=== PATIENT | female | born 1960 | race Caucasian/White ===

== ENCOUNTER 2020-02-04 11:14 | Outpatient (CLI) | payer BC, SELFPAY ==
--- NOTE | 2020-02-04 11:31 | MM_ITS ---
WS: [id number] BILATERAL DIGITAL SCREENING MAMMOGRAPHY WITH CAD CLINICAL INFORMATION: SCREEN HISTORY: Screening mammogram. No current complaints. COMPARISON: September 16, 2018 TECHNIQUE: Bilateral CC and MLO views. FINDINGS: The breasts are composed of heterogeneous fibroglandular density tissue, which can limit the detectio n of small underlying mass lesions. No suspicious mass, asymmetry, calcifications, or architectural d istortion. No evidence of malignancy. MM/[place] [id number] IMPRESSION: BI-RADS: 2-Benign FOLLOW UP: 1 Year Follow-up Recommend return to annual screening mammography.
== END 2020-02-04 11:15 | disposition home or self-care (01) ==
LOC: RADSHAW 11:14
PROVIDERS: PCP Family Medicine; Visit Provider Family Medicine
DX: Z12.31 Encounter for screening mammogram for malignant neoplasm of breast (principal)
CPT/HCPCS: 77067

== ENCOUNTER → 2020-02-09 15:00 | Outpatient (BNVA) | payer BC, SELFPAY | PROVIDERS: PCP Family Medicine; Visit Provider Obstetrics & Gynecology | DX: R30.0 Dysuria (principal) | CPT/HCPCS: 80053; 81000 ==

== ENCOUNTER → 2020-04-11 15:37 | Outpatient (BNVA) | payer BC, SELFPAY | PROVIDERS: PCP Family Medicine; Visit Provider Obstetrics & Gynecology | DX: N90.89 Other specified noninflammatory disorders of vulva and perineum (principal) | CPT/HCPCS: 88305 ==

== ENCOUNTER 2021-01-01 15:12 | Outpatient (CLI) | payer BC, SELFPAY ==
--- NOTE | 2021-01-01 15:40 | XRR_ITS ---
PROCEDURE INFORMATION: Exam: XR Chest Exam date and time: 01/01/2021 3:40 PM Age: 60 years old Clinical indication: Cough and fever; Additional info: Cough/fever TECHNIQUE: Imaging protocol: XR of the chest. Views: 2 views. COMPARISON: No relevant prior studies available. FINDINGS: Lungs: Unremarkable. No consolidation. Hyperinflation. Emphysematous changes. Pleural spaces: Unremarkable. No pleural effusion. No pneumothorax. Heart/Mediastinum: Unremarkable. No cardiomegaly. Bones/joints: Unremarkable. XR/XR chest 2V* [id number] IMPRESSION: No acute findings.
== END 2021-01-01 15:13 | disposition home or self-care (01) ==
PROVIDERS: PCP Family Medicine; Visit Provider Family Medicine
DX: R05 Cough (principal); R50.9 Fever, unspecified
CPT/HCPCS: 71046

== ENCOUNTER 2021-03-02 11:33 | Outpatient (CLI) | payer BC, SELFPAY ==
--- NOTE | 2021-03-02 11:38 | MM_ITS ---
WS: [id number] Exam: [place] [id number] Date/Time of Exam: 03/02/2021 11:45 AM Reason For Exam: SCREENING VIEWS: MLO and CC views both breasts. Comparison made with prior exam of 02/04/2020, 09/16/2018, and 08/06/2017.. Findings: Partially obscured grouped microcalcifications are noted in the right breast at about the 12:30 posit ion at mid depth. No associated mass or architectural distortion. The left breast is unremarkable wit hout significant change. Both breasts are heterogeneously dense. MM/[place] [id number] Impression: BI-RADS: 0-Incomplete: Need additional imaging evaluation FOLLOW-UP: Magnification spot imaging of the right breast in the CC and 90 degr ee lateral projections would be indicated for further workup. This mammogram was also analyzed by the Computer Aided Detection System R2 Imag e Pathology Specialist.
== END 2021-03-02 11:34 | disposition home or self-care (01) ==
LOC: RADSHAW 11:36
PROVIDERS: PCP Family Medicine; Visit Provider Obstetrics & Gynecology
DX: Z12.31 Encounter for screening mammogram for malignant neoplasm of breast (principal)
CPT/HCPCS: 77067

== ENCOUNTER 2021-03-15 12:56 | Outpatient (CLI) | payer BC, SELFPAY ==
--- NOTE | 2021-03-15 13:00 | MM_ITS ---
WS: [id number] RIGHT DIGITAL MAMMOGRAPHY WITH CAD CLINICAL INFORMATION: R92.8 - Other abnormal and inconclusive findings on diagn... All COMPARISON: March 02, 2021 TECHNIQUE: 6 views of the right breast were obtained. FINDINGS: The right breast is composed of heterogeneous fibroglandular density tissue, which can limit the dete ction of small underlying mass lesions. Again seen are the clustered amorphous microcalcifications ri ght breast near the 12:00 position mid depth. On spot magnification views today these are very faintl y visualized. Some of these appear to represent benign milk of calcium. Overall these are probably be nign and recommend 6 month follow-up right spot magnification views to confirm stability. MM/[place] [id number] IMPRESSION: BI-RADS: 3-Probably Benign FOLLOW UP: 6 Month Follow-up
== END 2021-03-15 12:57 | disposition home or self-care (01) ==
LOC: RADSHAW 13:01
PROVIDERS: PCP Family Medicine; Visit Provider Obstetrics & Gynecology
DX: R92.8 Other abnormal and inconclusive findings on diagnostic imaging of breast (principal)
CPT/HCPCS: 77065

== ENCOUNTER → 2021-05-17 17:05 | Outpatient (BNVA) | payer BC, SELFPAY | PROVIDERS: PCP Family Medicine; Visit Provider Nurse Practitioner | DX: Z20.822 Contact with and (suspected) exposure to COVID-19 (principal); J01.90 Acute sinusitis, unspecified | CPT/HCPCS: 87635 ==

== ENCOUNTER 2021-09-21 11:45 | Outpatient (CLI) | payer BC, SELFPAY ==
--- NOTE | 2021-09-21 12:00 | MM_ITS ---
WS: [id number] Diagnostic RIGHT MAMMOGRAM HISTORY: Follow-up calcifications. Six-month of reevaluation. COMPARISON: 03/02/2021, 03/15/2021 and 02/04/2020. RIGHT MAMMOGRAM: Magnification views and true ML. Calcifications are best seen in the lateral projections above the nipple line at a middle depth. Some of these calcifications are in the linear distribution. There is adjacent moderate fibroglandular di sease. The calcifications do appear to have increased in size and number. MM/[place] [id number] IMPRESSION: BI-RADS: 4-Suspicious Finding-Biopsy Should Be Considered FOLLOW UP: Biopsy Recommended Stereotactic biopsy recommended of linear calcifications in the superior RIGHT breast. Notified Junior Colon MD at 09/21/2021 12:42 PM. Message left on nurse [facility].
== END 2021-09-21 11:46 | disposition home or self-care (01) ==
LOC: RADSHAW 11:51
PROVIDERS: PCP Family Medicine; Visit Provider Obstetrics & Gynecology
DX: R92.8 Other abnormal and inconclusive findings on diagnostic imaging of breast (principal); R92.1 Mammographic calcification found on diagnostic imaging of breast
CPT/HCPCS: 77065

== ENCOUNTER 2021-10-08 14:02 | Outpatient (CLI) | payer SELFPAY ==
[2021-10-08 08:55] VITALS: BMI 26.4
[2021-10-08 15:50] VITALS: BP 119/64; PULSE 77; RESP 18; TEMP 36.7; O2SAT 97
== END 2021-10-08 14:03 | disposition home or self-care (01) ==
LOC: OPS 14:03
PROVIDERS: PCP Family Medicine; Visit Provider Family Medicine
DX: U07.1 COVID-19 (principal)
CPT/HCPCS: 96365

== ENCOUNTER 2021-10-23 12:11 | Outpatient (CLI) | payer BC, SELFPAY ==
--- NOTE | 2021-10-23 12:16 | MM_ITS ---
WS: [id number] STEREOTACTIC RIGHT BREAST BIOPSY WITH VACUUM ASSISTANCE HISTORY: Indeterminate vague calcifications in the RIGHT breast. COMPARISON: 09/21/2021 and 03/02/2021 Procedure, risks and complications were explained to the patient. Medications and prior radiographs a re reviewed. RIGHT breast calcifications are located. Calcifications are targeted in the lateral medial projection . These calcifications are very vague and difficult to visualize. The skin is cleansed with ChloraPre p and anesthetized with 1% buffered lidocaine. Deeper soft tissues anesthetized with a combination of lidocaine and epinephrine. Small dermatome is made. Needle advanced into the RIGHT breast. Stereotac tic imaging reveals appropriate positioning adjacent calcifications. Multiple vacuum-assisted core bi opsies are obtained. No complications were encountered. Post biopsy specimen radiograph reveals no calcifications. These calcifications may have been crushed . Biopsy clip is placed in the cavity. Post imaging reveals good placement of the clip. No migration. Pressures held for approximately 15 minutes. No bleeding. Dressing applied. Patient discharged with n o complications. There is no bleeding. With any questions or complications patient is to return. MM/[place] [id number] IMPRESSION: 1. Uncomplicated RIGHT breast stereotactic biopsy. 2. Specimen does not contain calcifications. These calcifications were very sm all and could have been crushed. Post procedure imaging does suggest these calc ifications were partially removed. The biopsy clip and the post procedure imagi ng supports these calcifications where correctly targeted. Pathology: Benign breast tissue with focal adenosis and fibrocystic changes. No malignancy. RECOMMENDATION: Diagnostic RIGHT mammogram in 6 months.
--- NOTE | 2021-10-23 13:00 | MM_ITS ---
WS: [id number] STEREOTACTIC RIGHT BREAST BIOPSY WITH VACUUM ASSISTANCE HISTORY: Indeterminate vague calcifications in the RIGHT breast. COMPARISON: 09/21/2021 and 03/02/2021 Procedure, risks and complications were explained to the patient. Medications and prior radiographs a re reviewed. RIGHT breast calcifications are located. Calcifications are targeted in the lateral medial projection . These calcifications are very vague and difficult to visualize. The skin is cleansed with ChloraPre p and anesthetized with 1% buffered lidocaine. Deeper soft tissues anesthetized with a combination of lidocaine and epinephrine. Small dermatome is made. Needle advanced into the RIGHT breast. Stereotac tic imaging reveals appropriate positioning adjacent calcifications. Multiple vacuum-assisted core bi opsies are obtained. No complications were encountered. Post biopsy specimen radiograph reveals no calcifications. These calcifications may have been crushed . Biopsy clip is placed in the cavity. Post imaging reveals good placement of the clip. No migration. Pressures held for approximately 15 minutes. No bleeding. Dressing applied. Patient discharged with n o complications. There is no bleeding. With any questions or complications patient is to return. MM/[place] [id number] IMPRESSION: 1. Uncomplicated RIGHT breast stereotactic biopsy. 2. Specimen does not contain calcifications. These calcifications were very sm all and could have been crushed. Post procedure imaging does suggest these calc ifications were partially removed. The biopsy clip and the post procedure imagi ng supports these calcifications where correctly targeted. Pathology: Benign breast tissue with focal adenosis and fibrocystic changes. No malignancy. RECOMMENDATION: Diagnostic RIGHT mammogram in 6 months.
[2021-10-23 14:08] LABS: INR 0.93 (0.8-1.2)
== END 2021-10-23 12:12 | disposition home or self-care (01) ==
PROVIDERS: PCP Family Medicine; Visit Provider Obstetrics & Gynecology
DX: R92.8 Other abnormal and inconclusive findings on diagnostic imaging of breast (principal); Z01.812 Encounter for preprocedural laboratory examination; N60.21 Fibroadenosis of right breast
CPT/HCPCS: 19081; 77065; 85610; 88305

== ENCOUNTER 2022-05-01 09:16 | Outpatient (CLI) | payer BC, SELFPAY ==
--- NOTE | 2022-05-01 09:25 | MM_ITS ---
WS: [id number] Bilateral diagnostic 3D tomosynthesis digital mammogram, 05/01/2022 Clinical Data: R92.8 - Other abnormal and inconclusive findings on diagn... Comparison: 10/23/2021, 09/21/2021, 03/15/2021, 03/02/2021. Findings: The breast parenchymal pattern shows heterogeneous density. There is a biopsy clip in the upper outer quadrant right breast. No spiculated masses or clustered calcifications are seen. There are mole mar kers on both breasts. No secondary signs of carcinoma. No clustered calcifications or spiculated mass es are seen. MM/[place] [id number] Impression: 1. Bilateral negative mammogram. 2. Recommend annual mammograms. BIRADS: 2-Benign FOLLOW UP: 1 Year Follow-up The CAD roller checker was used.
== END 2022-05-01 09:17 | disposition home or self-care (01) ==
LOC: RAD 09:17
PROVIDERS: PCP Family Medicine; Visit Provider Obstetrics & Gynecology
DX: R92.8 Other abnormal and inconclusive findings on diagnostic imaging of breast (principal)
CPT/HCPCS: 77062

== ENCOUNTER → 2022-08-19 09:39 | Outpatient (BNVA) | payer BC, SELFPAY | PROVIDERS: PCP Family Medicine; Visit Provider Family Medicine | DX: Z51.81 Encounter for therapeutic drug level monitoring (principal); Z13.220 Encounter for screening for lipoid disorders; Z00.00 Encounter for general adult medical examination without abnormal findings; Z12.11 Encounter for screening for malignant neoplasm of colon | CPT/HCPCS: 80053; 80061; 85025 ==

== ENCOUNTER → 2022-09-02 13:06 | Outpatient (BNVA) | payer BC, SELFPAY | PROVIDERS: PCP Family Medicine; Visit Provider Family Medicine | DX: R73.09 Other abnormal glucose (principal) | CPT/HCPCS: 83036 ==

== ENCOUNTER 2022-12-02 16:50 | Observation (INO) | payer BC, SELFPAY ==
[2022-12-02] VITALS (9 sets, daily range): BP systolic 115–181; BP diastolic 68–89; PULSE 67–88; RESP 16–18; TEMP 36.4–37.1; O2SAT 95–99; BMI 28.2
--- NOTE | 2022-12-02 17:38 | ED_ITS ---
HPI - Neuro Symptoms/Deficit General: Chief Complaint: Neuro Symptoms/Deficit Stated Complaint: Yariel sent/poss TIA Time Seen by Provider: 12/02/22 17:38 History of Present Illness: Ms Vargas is a 62 lady with history of hypertension presenting to the emergency department for strokelike symptoms that have resolved. She reports being at her baseline health. She had onset between 2 and 230 this afternoon with a dizzy unsteady feeling while standing. She tried to talk to her and had difficulty with word finding and trouble forming her words. She had palpitations associated with this. She laid down for a nap and subsequently woke up. Some of her symptoms had improved however she did note left-sided facial droop and perhaps lack of strength in the left upper extremity. She does endorse unsteady feeling with gait. She currently feels back to baseline without neurologic symptoms. Denies similar episodes in the past. No other specific changes in health, exacerbating, or alleviating factors identified. Onset (ago): hour(s) Severity: moderate Relieving factors: time Review of Systems General: Reports: 10 or more systems reviewed and unremarkable except in HPI and below PFSH ED PFSH: Medical History History of mononucleosis Month of December 2020 Hypertension Diagnosed at 53 and controlled with medication managed by PMD. No pertinent past medical history Denies: diabetes, seizures, DVT/PE, asthma. PCP: Dr. Saldivar Surgical History S/P section x 3 S/P dilation and curettage Done for miscarriage S/P tubal ligation Performed at time of her third S/P wisdom tooth extraction Family History Father Heart disease Stroke Hypertension Mother Thyroid condition Polycythemia vera at age 90 Family/Other Breast cancer paternal aunt, diagnosed in her 70s. 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 at Physical Exam Const: COMMON NORMALS: patient oriented x3 and alert GENERAL APPEARANCE: cooperative and well developed HENMT: COMMON NORMALS: normocephalic and atraumatic HEAD & SCALP: normocephalic and atraumatic Eye: COMMON NORMALS: conjunctivae normal CONJUNCTIVA: Yes conjunctivae normal SCLERA: sclerae normal Neck/C-Spine: COMMON NORMALS: supple GENERAL: Yes trachea midline Resp: COMMON NORMALS: normal respiratory effort EFFORT & INSPECTION: Yes able to speak in complete sentences Cardio: COMMON NORMALS: regular rate and regular rhythm RATE: regular rate RHYTHM: regular rhythm GI: COMMON NORMALS: Soft to palpation PALPATION: Yes Soft to palpation and No Tenderness to palpation present (GI) PERCUSSION: normal to percussion Extremity: GENERAL: Yes normal exam except as noted and No edema Neuro: COMMON NORMALS: patient oriented x3, CN's II-XII intact bilaterally, moves all extremities, no focal motor deficits, no sensory deficits noted and gait normal SENSORIUM/ORIENTATION: Yes alert and No Orientation impaired Psych: COMMON NORMALS: mental status grossly normal and Normal thought process present THOUGHT PROCESS: Normal thought process present Course Vital Signs: Vital signs: Vital Signs Temperature 98.2 F 12/03/22 16:02 Pulse Rate 80 12/03/22 16:02 Respiratory Rate 18 12/03/22 16:02 Blood Pressure 154/84 12/03/22 16:02 Pulse Oximetry 95 12/03/22 16:02 Oxygen Delivery Me thod 12/03/22 12:00 MDM - Neuro Symptoms/Deficit Medical Decision Making 62-year-old lady presenting for strokelike symptoms that have resolved. Symptoms seem to wax and wane in nature. NIHSS 0. No indication for tPA. EKG notable for sinus rhythm with normal axis and intervals, no STEMI. No significant hematologic or metabolic abnormalities to explain symptoms. No UTI. Chest x-ray with no lobar consolidation or pneumothorax. CT head negative for acute intracranial hemorrhage. Most likely etiology of patient symptoms is TIA. The results of ED evaluation were discussed with the patient including plan for admission due to requirement for level of care not available if discharged to prevent significant worsening/deterioration. Patient agreeable with plan. Discussed with hospitalist service who was agreeable to admit patient. Medical Records I reviewed the patient's medical records. Lab Data I reviewed the patient's lab results. 12/02/22 18:11 12/02/22 18:11 Radiology Impressions Chest X-Ray 12/02/22 17:49 IMPRESSION: No acute findings. Head CT 12/02/22 17:49 IMPRESSION: No acute intracranial abnormality. Head/Neck CTA 12/03/22 09:59 IMPRESSION: 1. No significant ICA stenosis bilaterally. 2. LEFT dominant vertebral artery. Both vertebral arteries are patent. 3. Aberrant RIGHT subclavian artery. 4. Normal intracranial CTA. No proximal flow limiting stenosis. 5. No other remarkable findings. Shoulder X-Ray 12/03/22 13:57 Impression: Negative left shoulder. Laboratory Results WBC 8.1 10^3/uL (4.0-10.0) 12/02/22 18:11 RBC 4.97 10^6/uL (4.1-5.3) 12/02/22 18:11 Hgb 14.0 g/dL (11.5-15.3) 12/02/22 18:11 Hct 42.8 % (37.0-47.0) 12/02/22 18:11 MCV 86.1 fl (81-99) 12/02/22 18:11 MCH 28.2 pg (28.0-34.0) 12/02/22 18:11 MCHC 32.7 g/dL (30.0-36.0) 12/02/22 18:11 RDW 13.2 % (12.1-15.1) 12/02/22 18:11 Plt Count 265 10^3/cmm (130-400) 12/02/22 18:11 MPV 9.4 fL (7.4-10.4) 12/02/22 18:11 Neut % (Auto) 82.1 % 12/02/22 18:11 Lymph % (Auto) 12.2 % 12/02/22 18:11 Elbert % (Auto) 4.6 % 12/02/22 18:11 Eos % (Auto) 0.2 % 12/02/22 18:11 Baso % (Auto) 0.5 % 12/02/22 18:11 Neut # (Auto) 6.65 10^3/uL (1.8-7.7) 12/02/22 18:11 Lymph # (Auto) 1.0 10^3/uL (0.8-4.8) 12/02/22 18:11 Elbert # (Auto) 0.4 10^3/uL (0.2-0.9) 12/02/22 18:11 Eos # (Auto) 0.0 10^3/uL (0.0-0.8) 12/02/22 18:11 Baso # (Auto) 0.0 10^3/uL (0.0-0.1) 12/02/22 18:11 Nucleated RBC % (auto) 0 % 12/02/22 18:11 Nucleated RBCs # 0.0 /100WBC 12/02/22 18:11 Sodium 141 mmol/L (136-145) 12/02/22 18:11 Potassium 4.5 mmol/L (3.5-5.1) 12/02/22 18:11 Chloride 105 mmol/L (98-107) 12/02/22 18:11 Carbon Dioxide 24 mmol/L (22-29) 12/02/22 18:11 Anion Gap 16.5 (5-19) 12/02/22 18:11 BUN 14 mg/dL (8-23) 12/02/22 18:11 Creatinine 0.7 mg/dL (0.5-0.9) 12/02/22 18:11 GFR Calculation 84.2 mL/min (90-130) L 12/02/22 18:11 Glucose 142 mg/dL (65-115) H 12/02/22 18:11 POC Glucose 169 mg/dL (70-110) H 12/02/22 18:06 Calculated Osmolality 295 mOsm/kg (285-295) 12/02/22 18:11 Calcium 9.5 mg/dL (8.5-10.5) 12/02/22 18:11 Magnesium 2.2 mg/dL (1.7-2.3) 12/02/22 18:11 Total Bilirubin 0.3 mg/dL (0.15-1.2) 12/02/22 18:11 AST 17 U/L (0-32) 12/02/22 18:11 ALT 33 U/L (0-33) 12/02/22 18:11 Alkaline Phosphatase 91 U/L (35-105) 12/02/22 18:11 Troponin T Baseline 6 ng/L (0-10) 12/02/22 18:11 Troponin T 120 Minute 6.00 ng/L (0-10) 12/02/22 20:11 Delta Troponin T 0 ABS# (0-10) 12/02/22 20:11 Total Protein 6.9 g/dL (6.6-8.7) 12/02/22 18:11 Albumin 4.8 g/dL (3.5-5.2) 12/02/22 18:11 Globulin 2.1 g/dL (1.3-4.6) 12/02/22 18:11 TSH 2.40 uIU/mL (0.27-4.20) 12/02/22 18:11 Urine Color Light yellow (Yellow) 12/02/22 19:20 Urine Appearance Clear (CLEAR) 12/02/22 19:20 Urine pH 6.5 (5-7) 12/02/22 19:20 Ur Specific [place] 1.005 (1.005-1.030) 12/02/22 19:20 Urine Protein Neg (Negative) 12/02/22 19:20 Urine Glucose (UA) Norm (Normal) 12/02/22 19:20 Urine Ketones Negative (Negative) 12/02/22 19:20 Urine Blood Neg (Negative) 12/02/22 19:20 Urine Nitrate Negative (Negative) 12/02/22 19:20 Urine Bilirubin Neg (Negative) 12/02/22 19:20 Urine Urobilinogen Neg mg/dL (Negative) 12/02/22 19:20 Ur Leukocyte Esterase Trace (Negative) H 12/02/22 19:20 Urine RBC None /hpf (0-2) 12/02/22 19:20 Urine WBC 0-4 /hpf (0-5) H 12/02/22 19:20 Ur Squamous Epith Cells None /hpf (0-5) 12/02/22 19:20 Amorphous Sediment Not Reportable 12/02/22 19:20 Urine Bacteria None /hpf (NONE) 12/02/22 19:20 Discharge Plan Discharge Patient Disposition: Placed in Observation Admit Provider: Todd Rodas Clinical Impression: Brain TIA Discharge Diet: Cardiac Discharge Activity: Resume usual activity Coding Level of Care Code 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
--- NOTE | 2022-12-02 17:49 | CTR_ITS ---
PROCEDURE INFORMATION: Exam: CT Head Without Contrast Exam date and time: 12/02/2022 6:33 PM Age: 62 years old Clinical indication: Altered mental status/memory loss and speech disturbance; Additional info: Stroke like symptoms, resolved, L facial droop, word finding difficulty TECHNIQUE: Imaging protocol: Computed tomography of the head without contrast. Radiation optimization: All CT scans at this facility use at least one of these dose optimization techniques: automated exposure control; mA and/or kV adjustment per patient size (includes targeted exams where dose is matched to clinical indication); or iterative reconstruction. REPORTING DATA: Count of CT and Cardiac NM exams in prior 12 months: This patient has received 0 known CTs and 0 known cardiac nuclear medicine studies in the 12 months prior to the current study. COMPARISON: No relevant prior studies available. RADIATION DOSE METRICS: Total DLP (mGy-cm): 1049.08 FINDINGS: Brain: Normal. No hemorrhage. Unremarkable white matter. No mass effect. Cerebral ventricles: No ventriculomegaly. Paranasal sinuses: Visualized sinuses are unremarkable. No fluid levels. Mastoid air cells: Visualized mastoid air cells are well aerated. Bones/joints: Unremarkable. No acute fracture. Soft tissues: Unremarkable. CT/CT head wo con* [id number] IMPRESSION: No acute intracranial abnormality.
--- NOTE | 2022-12-02 17:49 | XRR_ITS ---
PROCEDURE INFORMATION: Exam: XR Chest Exam date and time: 12/02/2022 6:02 PM Age: 62 years old Clinical indication: Cough; Additional info: Stroke like symptoms TECHNIQUE: Imaging protocol: Radiologic exam of the chest. Views: 1 view. COMPARISON: CR XR chest 2V* [id number] 01/01/2021 3:47 PM FINDINGS: Lungs: Changes of emphysema. The lungs are clear. No consolidation. Pleural spaces: Unremarkable. No pleural effusion. No pneumothorax. Heart/Mediastinum: Unremarkable. No cardiomegaly. Bones/joints: Unremarkable. XR/XR chest 1V portable [id number] IMPRESSION: No acute findings.
--- NOTE | 2022-12-02 17:58 | ECG_ITS ---
[facility] Test Date: 2022-12-02 Pat Name: Sharyn Vargas Department: Room: Gender: Female [employer]: : 1960 Requested By: Max Tai Order Number: [id number] Flower MD: Dieter Cormier M.D. Measurements Intervals [place] Rate: 74 P: 56 WA: 195 QRS: 64 QRSD: 92 T: 65 QT: 382 QTc: 424 Interpretive Statements SINUS RHYTHM No previous ECG available for comparison Electronically Signed On 12-03-2022 23:05:50 CDT by Dieter Cormier M.D. [email or web address]
[2022-12-02 18:19] LABS: Glucose Point of Care 169 mg/dL (70-110)
[2022-12-02 18:22] LABS: Basophils % 0.5 %; Eosinophils % 0.2 %; Hematocrit 42.8 % (37.0-47.0); Lymphocytes % 12.2 %; Mean Corpuscular HGB Conc 32.7 g/dL (30.0-36.0); Mean Corpuscular Hemoglobin 28.2 pg (28.0-34.0); Mean Corpuscular Volume 86.1 fl (81-99); Mean Platelet Volume 9.4 fL (7.4-10.4); Monocytes # 0.4 10^3/uL (0.2-0.9); Monocytes % 4.6 %; Neutrophils # 6.65 10^3/uL (1.8-7.7); Neutrophils % 82.1 %; Nucleated Red Blood Cells % 0 %; Platelet Count 265 10^3/cmm (130-400); Red Blood Count 4.97 10^6/uL (4.1-5.3); Red Cell Distribution Width 13.2 % (12.1-15.1); White Blood Count 8.1 10^3/uL (4.0-10.0)
[2022-12-02 18:46] LABS: Troponin(5th) Baseline 6 ng/L (0-10)
[2022-12-02 18:53] LABS: Alanine Aminotransferase 33 U/L (0-33); Albumin Level 4.8 g/dL (3.5-5.2); Alkaline Phosphatase 91 U/L (35-105); Anion Gap 16.5 (5-19); Aspartate Amino Transferase 17 U/L (0-32); Blood Urea Nitrogen 14 mg/dL (8-23); Calcium 9.5 mg/dL (8.5-10.5); Carbon Dioxide 24 mmol/L (22-29); Chloride 105 mmol/L (98-107); Globulin 2.1 g/dL (1.3-4.6); Glomerular Filtration Rate 84.2 mL/min (90-130); Glucose 142 mg/dL (65-115); Magnesium 2.2 mg/dL (1.7-2.3); Osmolality Calculated 295 mOsm/kg (285-295); Potassium 4.5 mmol/L (3.5-5.1); Sodium 141 mmol/L (136-145); Total Bilirubin 0.3 mg/dL (0.15-1.2); Total Protein 6.9 g/dL (6.6-8.7)
[2022-12-02 19:41] LABS: Bilirubin Urine Neg (Negative); Blood Urine Neg (Negative); Glucose Urine UA Norm (Normal); Ketones Urine Negative (Negative); Nitrate Urine Negative (Negative); Protein Urine Neg (Negative); Specific Gravity, Urine 1.005 (1.005-1.030); Urine Appearance Clear (CLEAR); Urine Color Light yellow (Yellow); pH Urine 6.5 (5-7)
[2022-12-02 19:42] LABS: Add Urine Culture? No; Add Urine Microscopic? YES; Leukocyte Esterase Urine Trace (Negative); Urobilinogen Urine Neg (Negative); WBC Urine 0-4 /hpf (0-5)
[2022-12-02 21:32] LABS: Troponin 5 2HR Delta 0 ABS# (0-10)
--- NOTE | 2022-12-02 21:37 | PM.HP ---
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 She came into ER after series of symptoms earlier today, initially feeling slightly off/lightheaded, and noticed was having some word finding difficulty when speaking to her . Laid down for a nap, subsequently went to use the restroom and noticed that her left arm was not cooperating as well as the right one when trying to pull up her pants. Looked in the mirror and noticed some facial droop with a smile on the left side. Again some word finding difficulties. Also felt slightly unsteady trying to walk in the hallway. Symptoms resolved in less than a minute spontaneously. Then had a third episode of similar symptoms again resolved in less than a minute. Upon waking up earlier she noticed some palpitations, which she thought was strange since she was just laying down, did not think that she was necessarily any more stressed at that time. Denies any history of arrhythmia. On assessment in ER symptoms are resolved. CT head without acute intracranial abnormality. Glucose 169. A1c in 09/05 noted 5.6. Review of Systems Const: Denies: fever(s), chills, body aches or malaise Eyes: Denies: change in vision, eye discomfort or eye redness ENMT: Denies: throat pain, oral sores or ear or mastoid pain Card: Reports: palpitations; Denies: chest pain, edema, pre-syncope or dyspnea on exertion Resp: Denies: dyspnea, productive cough, change in phlegm color or hemoptysis GI: Denies: abdominal pain, nausea, vomiting, diarrhea, constipation, hematochezia or melena : Denies: flank pain, urinary frequency or hematuria Musc: Denies: back pain, joint swelling or joint redness Skin/Breast: Denies: rash or new lesions Neuro: Reports: weakness in extremities, difficulty communicating thoughts and other (facial droop); Denies: headache(s), numbness in extremities, confusion or seizure-like activity Endo: Denies: polyuria or polydipsia Mamadou/Lymph: Denies: easy bleeding or tender lymph nodes All/Imm: Denies: urticaria or tongue swelling Medications/Allergies Home Medications Medication Instructions Recorded Confirmed Last Taken Type lactobacillus combination no.4 3 3,000 mmu cells PO .every other day 04/02/22 10/11/22 Unknown History billion cell capsule (Probiotic) citalopram 10 mg tablet See Rx Instructions .Route 07/29/22 10/11/22 Unknown Rx .COMPLEX #90 tabs losartan 50 mg tablet See Rx Instructions .Route 07/29/22 10/11/22 Unknown Rx .COMPLEX #90 tabs pantoprazole 40 mg tablet,delayed See Rx Instructions .Route 07/29/22 10/11/22 Unknown Rx release .COMPLEX #90 tabs multivitamin 1 tab PO DAILY 08/19/22 10/11/22 Unknown History cyclobenzaprine 10 mg tablet 10 mg PO TID PRN muscle spasm #30 10/11/22 10/11/22 Unknown Rx tabs ibuprofen 800 mg tablet 800 mg PO Q8H PRN pain #30 tabs 10/11/22 10/11/22 Unknown Rx Allergies Allergy/AdvReac Type Severity Reaction Status Date / Time doxycycline Allergy rash Verified 10/11/22 11:23 demeclocycline AdvReac Sun Verified 10/11/22 11:23 [From Declomycin] sensitivity and stomach ache lisinopril AdvReac dizziness Verified 10/11/22 11:23 PFSH Acute PFSH: Medical History History of mononucleosis Month of December 2020 Hypertension Diagnosed at 53 and controlled with medication managed by PMD. No pertinent past medical history Denies: diabetes, seizures, DVT/PE, asthma. PCP: Dr. Saldivar Surgical History S/P section x 3 S/P dilation and curettage Done for miscarriage S/P tubal ligation Performed at time of her third S/P wisdom tooth extraction Family History Father Heart disease Stroke Hypertension Mother Thyroid condition Polycythemia vera at age 90 Family/Other Breast cancer paternal aunt, diagnosed in her 70s. 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/I&O/Wt Last Vital Signs Temp 98.7 F 12/02/22 17:10 Pulse 78 12/02/22 18:53 Resp 16 12/02/22 18:53 BP 115/75 12/02/22 18:53 Pulse Ox 95 12/02/22 18:53 O2 Del Method 12/02/22 18:53 Weight last 48 hrs Weight 84.277 kg Physical Exam Const: COMMON NORMALS: patient oriented x3 and alert GENERAL APPEARANCE: cooperative ORIENTATION/CONSCIOUSNESS: Yes awake HENMT: COMMON NORMALS: oropharynx normal Neck/C-Spine: COMMON NORMALS: no JVD Resp: COMMON NORMALS: normal respiratory effort and clear to auscultation bilaterally AUSCULTATION: clear to auscultation bilaterally Cardio: COMMON NORMALS: no JVD, regular rhythm, S1 normal heart sound present, S2 normal heart sound present and No murmurs present (Cardio) RHYTHM: regular rhythm HEART SOUNDS: S1 normal heart sound present and S2 normal heart sound present GI: COMMON NORMALS: Normal to inspection, nondistended, normoactive bowel sounds present, Soft to palpation and non-tender PALPATION: Yes Soft to palpation Extremity: COMMON NORMALS: no joint enlargement and no pedal edema Neuro: COMMON NORMALS: patient oriented x3 and moves all extremities SENSORIUM/ORIENTATION: Yes alert OTHER: Keenly awake and alert, following directions with ease. No difficulty tracking. Visual dewitt full to confrontation. No visual extinction. Sensation symmetrical. No extinction. No facial droop. No pronator drift. No difficulties with coordination. No difficulty communicating or with speech. Skin: COMMON NORMALS: no rashes or lesions noted GENERAL SKIN EXAM: no rashes or lesions noted Data 12/02/22 18:11 12/02/22 18:11 A&P Assessment and plan (1) Brain TIA: Symptoms currently have resolved. 3 episodes of TIA lasting less than a minute. One of the episodes preceded by palpitations. CT head appreciated, unremarkable. Glucose appreciated with some elevation of this 169. A1c previously 5.6 in August. Does have hypertension, blood pressure elevated on presentation. She states otherwise when she checks it at home usually runs normal, sometimes up to low 130s systolic. ABCD score 4, discussed with her further management options. Discussed dual antiplatelet and risks, continuing aspirin, added Plavix for 21 days. Statin. Bedside swallow evaluation. Baseline lipid profile, recheck A1c. Long-term will benefit from more intensive monitoring and optimization of blood pressure control. Would also discontinue ibuprofen and avoid any NSAIDs due to cardiovascular risks. Palpitations. No history of arrhythmia. SR on EKG on my interpretation. Telemetry monitoring. Consider monitor after discharge. Additional work-up with carotid Doppler, TTE bubble study. Did feel she was a bit unsteady on her feet earlier, will ask PT evaluation, no indication for OT, ST currently. Please refer for follow-up with neurology. (2) Left shoulder pain: Left-sided shoulder pain. May be musculoskeletal, she does feel it worse with lifting up her grandbabies, however, with cardiovascular risks consider further work-up with stress test referral in case of atypical anginal symptoms. Last rest that she had was 5-10 years ago. (3) Chest wall pain: Left-sided shoulder and left side chest wall pain, as above. (4) Elevated glucose: a1c. Consistent carb cardiac diet once diet resumed. (5) Hypertension: Monitor blood pressures. Cardiac consistent carb diet once resumed. Continue losartan. Continue to optimize hypertension. Would benefit from more intensive monitoring at home possibly additional as needed medication for hypertensive episodes. Plan Discussed with ER physician. ER documentation reviewed. Attestations Medical Necessity Statement*: Place in observation for further assessment of management of TIA Diagnoses Brain TIA G45.9 Left shoulder pain M25.512 Chest wall pain R07.89 Elevated glucose R73.09 Hypertension I10
--- NOTE | 2022-12-02 21:38 | PC.NURSE ---
Transfer report received from Glen in ER, awaiting pt arrival to room.
[2022-12-02] MEDS: aspirin 81 mg EC Tablet 162 MG PO (22:23)
[2022-12-02] MEDS: clopidogrel 75 mg Tablet PO (22:23)
[2022-12-02] MEDS: atorvastatin 40 mg Tablet PO (22:24)
--- NOTE | 2022-12-02 23:50 | ECG_ITS ---
[facility] Test Date: 2022-12-03 Pat Name: Sharyn Vargas Department: Room: 279 Gender: Female [employer] Supervisor: : 1960 Requested By: Max Tai Order Number: [id number] Flower MD: Dieter Cormier M.D. Measurements Intervals [place] Rate: 70 P: 71 HI: 210 QRS: 63 QRSD: 96 T: 64 QT: 407 QTc: 442 Interpretive Statements SINUS RHYTHM WITH FIRST DEGREE AV BLOCK Poor R wave progression Compared to ECG 12/02/2022 17:58:57 First degree AV block now present Electronically Signed On 12-03-2022 23:15:07 CDT by Dieter Cormier M.D. [id number]
[2022-12-03] VITALS (9 sets, daily range): BP systolic 131–154; BP diastolic 70–84; PULSE 69–83; RESP 16–18; TEMP 36.5–37.1; O2SAT 95–99
[2022-12-03 00:19] LABS: Troponin 5 6HR Delta 0 ng/L (0-12)
[2022-12-03 06:31] LABS: Estmated Average Glucose 111; Hemoglobin A1C 5.5 % (4.0-6.0)
[2022-12-03 06:38] LABS: Chol HDL Ratio 5.39 mg/dL (0.0-4.40); Cholesterol 167 mg/dL (0-200); HDL Cholesterol 31 mg/dL (60-100); LDL Cholesterol Calculated 106 mg/dL (50-129); LDL HDL Ratio 3.42 RATIO (0.00-3.22); Triglycerides 150 mg/dL (0-150)
[2022-12-03] MEDS: losartan 50 mg Tablet PO (08:20)
[2022-12-03] MEDS: pantoprazole DR 40 mg Tablet PO (08:21)
[2022-12-03] MEDS: citalopram 20 mg Tablet 10 MG PO (08:21)
--- NOTE | 2022-12-03 09:59 | CT_ITS ---
WS: [id number] CTA HEAD AND NECK TECHNIQUE: Contrast enhanced CTA of the head and neck with coronal and sagittal reformatted images an d maximum intensity projection (MIP) images. NASCET criteria utilized. CLINICAL INFORMATION: cva COMPARISON: CT December 02, 2022 DLP: 1052.[address] scans at [facility] use at least one of these dose optimization techniques: automated e xposure control; mA and/or kV adjustment per patient size (includes targeted exams where dose is matc hed to clinical indication); or iterative reconstruction. FINDINGS: No evidence of intracranial hemorrhage or mass effect. Ventricular system and basal cistern s are patent. No hydrocephalus. Normal ve[place]-white differentiation. Paranasal sinuses and mastoid air cells well aerated. Vascular calcification. RIGHT: RIGHT common carotid artery is patent. Mild atheromatous plaque RIGHT carotid bulb. No signifi cant RIGHT ICA stenosis. RIGHT ICA is patent to the skull base. LEFT: LEFT common carotid artery is patent. No significant LEFT ICA stenosis. LEFT ICA is patent to t he skull base. Aberrant RIGHT subclavian artery. Lung apices are well aerated. INTRACRANIAL CTA: Both vertebral arteries are patent. LEFT dominant vertebral artery. Basilar artery is patent. Normal vascularity to the DIRECTOR SCRIPT territory bilaterally. Both ICAs are patent at the skull base. Normal vascularity HI and MCA territories bilaterally. No ev idence of flow-limiting stenosis. CT/CT angio headneck* [id number] IMPRESSION: 1. No significant ICA stenosis bilaterally. 2. LEFT dominant vertebral artery. Both vertebral arteries are patent. 3. Aberrant RIGHT subclavian artery. 4. Normal intracranial CTA. No proximal flow limiting stenosis. 5. No other remarkable findings.
--- NOTE | 2022-12-03 10:06 | P.DS_ITS ---
Discharge Providers Date of Admission: 12/02/22 21:15 Date of Discharge: December 03, 2022 Attending Provider at Admission: Todd Rodas Attending Provider at Discharge: Yovani Garcia MD Primary Care Provider: Ignacio Saldivar MD Diagnoses at Discharge Discharge Diagnosis (1) Brain TIA: Status: Acute (2) Left shoulder pain: Status: Acute (3) Chest wall pain: Status: Acute (4) Elevated glucose: Status: Acute (5) Hypertension: Status: Acute Permanent problem details: Diagnosed at 53 and controlled with medication managed by PMD. 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 She came into ER after series of symptoms earlier today, initially feeling slightly off/lightheaded, and noticed was having some word finding difficulty when speaking to her .? Laid down for a nap, subsequently went to use the restroom and noticed that her left arm was not cooperating as well as the right one when trying to pull up her pants.? Looked in the mirror and noticed some facial droop with a smile on the left side.? Again some word finding difficulties.? Also felt slightly unsteady trying to walk in the hallway.? Symptoms resolved in less than a minute spontaneously.? Then had a third episode of similar symptoms again resolved in less than a minute.? Upon waking up earlier she noticed some palpitations, which she thought was strange since she was just laying down, did not think that she was necessarily any more stressed at that time.? Denies any history of arrhythmia. On assessment in ER symptoms are resolved.? CT head without acute intracranial abnormality.? Glucose 169.? A1c in 09/05 noted 5.6. -Patient was [facility] to [facility] for TIA, her symptomatology completely resolved, no focal weakness, no word finding difficulties, no slurring of words, no facial droop -She is managed with aspirin, statin, Plavix -Telemetry monitoring, no arrhythmia events -CT angiogram of the neck -Cardiac echocardiogram -Patient will be discharged on aspirin 81 mg daily indefinitely, Plavix 75 mg once daily for 20 days, atorvastatin 40 mg once daily -Follow-up with neurology -Follow-up with primary care -Event monitor ordered, follow up with cardiology -If she has any recurrent strokelike symptoms immediately call [phone] -Monitor for bloody or black stools -See primary care provider this week for blood pressure check -She had complaints of left shoulder pain, musculoskeletal pain on examination, she has pain with range of motion, no clicking, no popping, but has some left AC joint tenderness, pain with internal rotation, possible impingement syndrome, as she cannot use ibuprofen given her TIA, I discharged her with a low-dose tramadol to be used as needed for pain, do not drive or operate heavy machinery or drink while taking medication Physical Exam Const: COMMON NORMALS: no acute distress and patient oriented x3 Resp: COMMON NORMALS: normal respiratory effort, No retractions, No use of accessory muscles and clear to auscultation bilaterally AUSCULTATION: clear to auscultation bilaterally Cardio: COMMON NORMALS: regular rate, regular rhythm, S1 normal heart sound present and S2 normal heart sound present RATE: regular rate RHYTHM: regular rhythm HEART SOUNDS: S1 normal heart sound present and S2 normal heart sound present GI: COMMON NORMALS: Normal to inspection, nondistended, normoactive bowel sounds present and non-tender Extremity: COMMON NORMALS: no pedal edema Neuro: COMMON NORMALS: patient oriented x3, CN's II-XII intact bilaterally, moves all extremities and no focal motor deficits Psych: COMMON NORMALS: mental status grossly normal Discharge Data Studies Completed and Pending Completed Studies During Hospitalization Category Date Time Status CT head wo con* [id number] Stat Cat Scan 12/02/22 17:49 Completed XR chest 1V portable [id number] Stat Exams 12/02/22 17:49 Completed CV carotid duplex BI* [id number] Routine Ultrasound 12/03/22 21:55 Completed Pending at discharge Category Date Time Status CT angio head neck [CT angio headneck* [id number]] Cat Scan 12/03/22 09:59 Ordered Stat CV. echo w/w bubble cont [id number] Routine Ultrasound 12/03/22 21:55 Taken Radiology Impressions Chest X-Ray 12/02/22 17:49 IMPRESSION: No acute findings. Head CT 12/02/22 17:49 IMPRESSION: No acute intracranial abnormality. Laboratory Results WBC 8.1 10^3/uL (4.0-10.0) 12/02/22 18:11 RBC 4.97 10^6/uL (4.1-5.3) 12/02/22 18:11 Hgb 14.0 g/dL (11.5-15.3) 12/02/22 18:11 Hct 42.8 % (37.0-47.0) 12/02/22 18:11 MCV 86.1 fl (81-99) 12/02/22 18:11 MCH 28.2 pg (28.0-34.0) 12/02/22 18:11 MCHC 32.7 g/dL (30.0-36.0) 12/02/22 18:11 RDW 13.2 % (12.1-15.1) 12/02/22 18:11 Plt Count 265 10^3/cmm (130-400) 12/02/22 18:11 MPV 9.4 fL (7.4-10.4) 12/02/22 18:11 Neut % (Auto) 82.1 % 12/02/22 18:11 Lymph % (Auto) 12.2 % 12/02/22 18:11 [place] % (Auto) 4.6 % 12/02/22 18:11 Eos % (Auto) 0.2 % 12/02/22 18:11 Baso % (Auto) 0.5 % 12/02/22 18:11 Neut # (Auto) 6.65 10^3/uL (1.8-7.7) 12/02/22 18:11 Lymph # (Auto) 1.0 10^3/uL (0.8-4.8) 12/02/22 18:11 [place] # (Auto) 0.4 10^3/uL (0.2-0.9) 12/02/22 18:11 Eos # (Auto) 0.0 10^3/uL (0.0-0.8) 12/02/22 18:11 Baso # (Auto) 0.0 10^3/uL (0.0-0.1) 12/02/22 18:11 Nucleated RBC % (auto) 0 % 12/02/22 18:11 Nucleated RBCs # 0.0 /100WBC 12/02/22 18:11 Sodium 141 mmol/L (136-145) 12/02/22 18:11 Potassium 4.5 mmol/L (3.5-5.1) 12/02/22 18:11 Chloride 105 mmol/L (98-107) 12/02/22 18:11 Carbon Dioxide 24 mmol/L (22-29) 12/02/22 18:11 Anion Gap 16.5 (5-19) 12/02/22 18:11 BUN 14 mg/dL (8-23) 12/02/22 18:11 Creatinine 0.7 mg/dL (0.5-0.9) 12/02/22 18:11 GFR Calculation 84.2 mL/min (90-130) L 12/02/22 18:11 Glucose 142 mg/dL (65-115) H 12/02/22 18:11 POC Glucose 169 mg/dL (70-110) H 12/02/22 18:06 Estimat Average Glucose 111 12/03/22 06:10 Hemoglobin A1c 5.5 % (4.0-6.0) 12/03/22 06:10 Calculated Osmolality 295 mOsm/kg (285-295) 12/02/22 18:11 Calcium 9.5 mg/dL (8.5-10.5) 12/02/22 18:11 Magnesium 2.2 mg/dL (1.7-2.3) 12/02/22 18:11 Total Bilirubin 0.3 mg/dL (0.15-1.2) 12/02/22 18:11 AST 17 U/L (0-32) 12/02/22 18:11 ALT 33 U/L (0-33) 12/02/22 18:11 Alkaline Phosphatase 91 U/L (35-105) 12/02/22 18:11 Troponin T Baseline 6 ng/L (0-10) 12/02/22 18:11 Troponin T 120 Minute 6.00 ng/L (0-10) 12/02/22 20:11 Delta Troponin T 0 ABS# (0-10) 12/02/22 20:11 Troponin T Hi Sens 6Hr 6.00 ng/L (0-10) 12/02/22 23:48 Troponin T Hi Sens 6Hr Delta 0 ng/L (0-12) 12/02/22 23:48 Total Protein 6.9 g/dL (6.6-8.7) 12/02/22 18:11 Albumin 4.8 g/dL (3.5-5.2) 12/02/22 18:11 Globulin 2.1 g/dL (1.3-4.6) 12/02/22 18:11 Triglycerides 150 mg/dL (0-150) 12/03/22 06:10 Cholesterol 167 mg/dL (0-200) 12/03/22 06:10 LDL Cholesterol, Calc 106 mg/dL (50-129) 12/03/22 06:10 HDL Cholesterol 31 mg/dL (60-100) L 12/03/22 06:10 LDL/HDL Ratio 3.42 RATIO (0.00-3.22) H 12/03/22 06:10 Cholesterol/HDL Ratio 5.39 mg/dL (0.0-4.40) H 12/03/22 06:10 TSH 2.40 uIU/mL (0.27-4.20) 12/02/22 18:11 Urine Color Light yellow (Yellow) 12/02/22 19:20 Urine Appearance Clear (CLEAR) 12/02/22 19:20 Urine pH 6.5 (5-7) 12/02/22 19:20 Ur Specific [place] 1.005 (1.005-1.030) 12/02/22 19:20 Urine Protein Neg (Negative) 12/02/22 19:20 Urine Glucose (UA) Norm (Normal) 12/02/22 19:20 Urine Ketones Negative (Negative) 12/02/22 19:20 Urine Blood Neg (Negative) 12/02/22 19:20 Urine Nitrate Negative (Negative) 12/02/22 19:20 Urine Bilirubin Neg (Negative) 12/02/22 19:20 Urine Urobilinogen Neg mg/dL (Negative) 12/02/22 19:20 Ur Leukocyte Esterase Trace (Negative) H 12/02/22 19:20 Urine RBC None /hpf (0-2) 12/02/22 19:20 Urine WBC 0-4 /hpf (0-5) H 12/02/22 19:20 Ur Squamous Epith Cells None /hpf (0-5) 12/02/22 19:20 Amorphous Sediment Not Reportable 12/02/22 19:20 Urine Bacteria None /hpf (NONE) 12/02/22 19:20 Vitals Last Vital Signs Temp 98.5 F 12/03/22 08:00 Pulse 80 12/03/22 08:00 Resp 17 12/03/22 08:00 BP 154/83 12/03/22 08:20 Pulse Ox 96 12/03/22 08:00 O2 Del Method 12/03/22 08:00 Discharge Plan Discharge Patient Disposition: Home Condition: Stable Prescriptions: New tramadol 50 mg tablet 50 mg PO BID PRN (Reason: pain) 7 Days Qty: 14 0RF atorvastatin 40 mg Tablet 40 mg PO BEDTIME 30 Days Qty: 30 0RF aspirin 81 mg Tablet,Delayed Release (Dr/Ec) 81 mg PO DAILY 30 Days Qty: 30 0RF clopidogrel 75 mg Tablet 75 mg PO DAILY 20 Days Qty: 20 0RF Continued multivitamin Tablet 1 tab PO DAILY pantoprazole 40 mg tablet,delayed release (DR/EC) See Rx Instructions .ROUTE .COMPLEX Qty: 90 3RF Dose Instruction: TAKE ONE TABLET BY MOUTH DAILY Rx Instructions: TAKE ONE TABLET BY MOUTH DAILY citalopram 10 mg tablet See Rx Instructions .ROUTE .COMPLEX Qty: 90 3RF Dose Instruction: TAKE ONE TABLET BY MOUTH DAILY Rx Instructions: TAKE ONE TABLET BY MOUTH DAILY losartan 50 mg tablet See Rx Instructions .ROUTE .COMPLEX Qty: 90 3RF Dose Instruction: TAKE ONE TABLET BY MOUTH DAILY Rx Instructions: TAKE ONE TABLET BY MOUTH DAILY Discontinued ibuprofen 800 mg tablet 800 mg PO Q8H PRN (Reason: pain) Qty: 30 1RF Discharge Orders: Discharge Order (Routine); Ordered 12/03/22 Ordered By: Yovani Garcia Other Ambulatory Orders: MCT/Event Monitor 30 Days (Routine) Timeframe: 1 Day Facility: [facility] - Location: Radiology Ordered By: Yovani Garcia Referrals: Paz Watkins MD [Physician] - 12/09/22 2:00 pm Fredy Qureshi M.D [Physician] - 12/17/22 12:45 pm (event monitor follow up) Ignacio Saldivar MD [Primary Care Provider] - 12/11/22 10:40 am Discharge Diet: Cardiac Discharge Activity: Resume usual activity Activity Restrictions/Additional Instructions: - If you have any recurrent strokelike symptoms please immediately call 911 -Please see cardiology in 1 month -Please see neurology -Please follow-up with primary care this week [facility]POINT[facility] ON DEC[facility]BER 17 AT 12:45 Discharge Attestations Time Spent in Discharge Care*: greater than 30 min Quality Metrics Clinical Quality Measures [ Cerebrovascular Accident { Contraindication to Antithrombotic: None; antithrombotic prescribed; Contraindication to Anticoagulation: Overlap treatment not indicated; Contraindication to Statin: None; Statin prescribed;}] Coding Level of Care Code 99191 Total time (in minutes) for Discharge: 40 Diagnoses Brain TIA G45.9 Left shoulder pain M25.512 Chest wall pain R07.89 Elevated glucose R73.09 Hypertension I10
[2022-12-03] MEDS: TRAMadol 50 mg Tablet PO (10:12)
[2022-12-03] MEDS: iohexol 350 mg/mL 500 mL Btl (per mL) IV (10:39)
--- NOTE | 2022-12-03 13:57 | XR_ITS ---
WS: [id number] Left shoulder, 3 views, 12/03/2022 Clinical Data: pain Comparison: None. Findings: No fractures or dislocations are seen. The AC joint is normal. The adjacent left clavicle, left scapu la and ribs are normal. The soft tissues are unremarkable. There is a monitor lead on the chest wall. XR/XR shoulder LT min 2V* [id number] Impression: Negative left shoulder.
--- NOTE | 2022-12-03 21:55 | USCV_ITS ---
Sharyn Vargas Age: 62 Gender: F : 1960 Exam Date: 12/03/2022 03:22 Ordering Phys: Todd Rodas MD Technologist: ALEX Exam Location: [facility] [place] Indication: TIA Risk Factors: Previous Vascular Surgery: Right Brachial BP: / Left Brachial BP: / Right Left Velocity (cm/s) Spectral Plaque Velocity (cm/s) Spectral Plaque Syst/Diast Broadening Syst/Diast Broadening 118.00/22.10 Prox CCA 83.45 / 17.10 116.90/19.80 Mid CCA 96.00 / 21.00 113.60/22.10 Distal CCA 90.70 / 23.70 68.40/ 22.50 Prox ICA 63.20 / 16.20 93.20/ 35.70 Mid ICA 73.50 / 28.20 110.30/38.60 Distal ICA 80.30 / 31.60 111.40 ECA 93.85 0.93 ICA/CCA 0.84 Antegrade Vertebral Antegrade / cm/s / cm/s Tri Subclavian Tri CONCLUSIONS Right ICA stenosis <50%. Mild atheromatous plaque right carotid bulb/ICA. Left ICA stenosis <50%. Mild atheromatous plaque left carotid bulb/ICA. Normal antegrade Doppler flow noted in the right vertebral artery. Normal antegrade Doppler flow noted in the left vertebral artery. Isidro Myrick MD (Electronically Signed) Final Date: 03 December 2022 08:45 S
--- NOTE | 2022-12-03 21:55 | USCV_ITS ---
Sharyn Vargas Age: 62 Gender: F : 1960 Exam Date: 12/03/2022 03:53 Ordering Phys: Todd Rodas MD Technologist: ALEX Exam Location: [facility] [place] Indication: TIA BP: 135 / 89 HR: 73 Rhythm: Sinus Technical Quality: Adequate MEASUREMENTS (Male / Female) Normal Values 2D ECHO LV Diastolic Diameter PLAX 3.6 cm 4.2 - 5.9 / 3.9 - 5.3 cm LV Systolic Diameter PLAX 2.3 cm IVS Diastolic Thickness 1.2 cm 0.6 - 1.0 / 0.6 - 0.9 cm IVS Systolic Thickness 1.6 cm LVPW Diastolic Thickness 1.2 cm 0.6 - 1.0 / 0.6 - 0.9 cm LVPW Systolic Thickness 1.4 cm LVOT Diameter 1.7 cm LV Ejection Fraction 2D Teich 68.3 % LV Ejection Fraction MOD 2C 70.4 % LV Ejection Fraction 2C AL 69.8 % LA Diameter 2.8 cm LA Width 2.0 cm LA Height 5.5 cm RA Width 3.2 cm RA Height 4.7 cm Aorta at Sinotubular Diameter 3.3 cm IVC Diameter 2.2 cm M-MODE Aortic Annulus Diameter 2.9 cm LA Ao Ratio MM 1.1 MV E Point Septal Separation 0.3 cm DOPPLER AV Peak Velocity 124.0 cm/s LVOT Peak Velocity 82.0 cm/s AV Area Cont Eq vti 1.7 cm squared AV Area Cont Eq pk 1.5 cm squared MV Area PHT 3.2 cm squared Mitral E to A Ratio 1.0 MV E' Velocity 39.5 cm/s Mitral E to MV E' Ratio 6.5 Mitral E to LV E' Lateral Ratio 5.6 Mitral E to LV E' Septal Ratio 7.9 TR Peak Velocity 215.0 cm/s TR Peak Gradient 18.5 mmHg TV Peak E Velocity 41.0 cm/s Right Atrial Pressure 5.0 mmHg Pulmonary Artery Systolic Pressu 23.5 mmHg PV Peak Velocity 101.0 cm/s RV Acceleration Time 0.1 s RV Ejection Time 0.4 s RV AcT/ET 0.3 FINDINGS Left Ventricle Normal left ventricular size and systolic function, EF 72 %. No regional wall motion abnormalities. Right Ventricle The right ventricle is normal in size and function. Right Atrium The right atrium is normal in size. Left Atrium The left atrium is normal in size. Mitral Valve No gross abnormalities noted Aortic Valve Minimally thickened aortic valve. Tricuspid Valve No gross abnormalities noted.trace tricuspid valve regurgitation. Estimated pulmonary artery peak systolic pressure 24 mmHg Pulmonic Valve Pulmonic valve not well visualized. Pericardium Normal pericardium without effusion. Aorta Normal ascending aorta dimension. IVC Normal inferior vena cava. CONCLUSIONS Normal left ventricular size and systolic function, EF 72 %. No regional wall motion abnormalities. Minimally thickened aortic valve. Normal cardiac chamber sizes. there is no pericardial effusion. No gross abnormalities noted.trace tricuspid valve regurgitation. Estimated pulmonary artery peak systolic pressure 24 mmHg There are no intracardiac masses. No similar previous studies are available for comparison Dr Dieter Cormier MD FACC (Electronically Signed) Final Date: 03 December 2022 13:35 S
== END 2022-12-03 16:03 | disposition home or self-care (01) ==
LOC: ER 20:57 → MEDSURG 21:20
PROVIDERS: Admitting Provider Internal Medicine; Emergency Provider Emergency Medicine; PCP Family Medicine; Visit Provider Family Medicine
DX: G45.9 Transient cerebral ischemic attack, unspecified (principal); M25.512 Pain in left shoulder; R07.89 Other chest pain; I10 Essential (primary) hypertension
CPT/HCPCS: 36415; 36416; 70450; 70496; 70498; 71045; 73030; 80053; 80061; 81001; 82962; 83036; 83735; 84443; 84484; 85025; 93005; 93880; 97161; 99285; C8929; G0378; Q9967

== ENCOUNTER 2023-01-01 10:51 | Outpatient (CLI) | payer BC, SELFPAY ==
--- NOTE | 2023-01-01 11:00 | MR_ITS ---
WS: [id number] MRI HEAD WITHOUT CONTRAST TECHNIQUE: Sagittal T1, T2 axial, T2 axial FLAIR, axial and coronal T1 images, axial susceptibility w eighted imaging, axial diffusion weighted images, and coronal T2 images were obtained. CLINICAL INFORMATION: R29.90 - Unspecified symptoms and signs involving the ner... COMPARISON: CT head December 02, 2022 FINDINGS: No evidence of restricted diffusion to suggest acute ischemia. Ventricular system and basal cisterns are patent. Mild small vessel changes. Mild parenchymal volume loss. Small vessel changes in the roseline . Normal posterior fossa. Normal vascular flow voids at the skull base. No extra-axial fluid collection s. No evidence of mass or mass effect. Paranasal sinuses and mastoid air cells well aerated. Normal p osterior nasopharynx. Normal parapharyngeal fat. No hemosiderin on susceptibly weighted images. Mild symmetric atrophy temporal lobes and hippocampal formations. Normal optic chiasm and pituitary i nfundibulum. MR/MR head wo con* [id number] IMPRESSION: 1. No evidence of restricted diffusion to suggest acute ischemia. 2. Mild small vessel changes with mild parenchymal volume loss. Prominent smal l vessel changes in the roseline. 3. No hemosiderin on susceptibly weighted images. 4. Mild symmetric atrophy temporal lobes and hippocampal formations. 5. No other suspicious findings.
== END 2023-01-01 10:52 | disposition home or self-care (01) ==
LOC: RAD 11:00
PROVIDERS: PCP Family Medicine; Visit Provider Specialist
DX: R29.90 Unspecified symptoms and signs involving the nervous system (principal)
CPT/HCPCS: 70551

== ENCOUNTER → 2023-01-23 12:29 | Outpatient (BNVA) | payer BC, SELFPAY | PROVIDERS: PCP Family Medicine; Visit Provider Internal Medicine | DX: R07.9 Chest pain, unspecified (principal) | CPT/HCPCS: 93005 ==

== ENCOUNTER 2023-03-01 19:35 | Emergency (ER) | payer BC, SELFPAY ==
[2023-03-01 19:59] VITALS: BP 154/81; PULSE 82; RESP 16; TEMP 37.2; O2SAT 100
--- NOTE | 2023-03-01 20:11 | ED_ITS ---
HPI - Fall General: Chief Complaint: Fall Stated Complaint: head injury / eye Time Seen by Provider: 03/01/23 20:07 Source: patient and family Mode of arrival: ambulatory Limitations: no limitations History of Present Illness: Patient is a nice 62-year-old female presents to ED today for evaluation of a right periorbital laceration that she sustained earlier today while she was in [place] at the airport boarding about to come home. Patient states she tripped over an uneven surface and fell striking her face. She states she sustained the laceration and right periorbital hematoma. Patient states she had the flight to catch so stated she would seek medical evaluation when she got home. She has no complaints at this time other than the swelling surrounding her eye and the laceration. She is on Plavix. She is not having any neck or back pain. No extremity injuries. Tetanus is up-to-date. MD complaint: fall Onset (ago): hour(s) Fall from: standing Fall witnessed: yes, by family Place fall occurred: other (airport) Loss of consciousness: None Prolonged down time: no Symptoms prior to fall: none Context: tripped/slipped Location of injury: head and face Severity: mild Associated symptoms-after fall: Reports no associated symptoms; Denies confusion, headache(s) or neck pain Review of Systems Eyes: Reports: other (hematoma R periorbit); Denies: change in vision, blurry vision, photophobia, floaters or seeing flashes GI: Denies: nausea or vomiting Musc: Denies: neck pain or back pain Skin/Breast: Reports: other (laceration R periorbit) Neuro: Denies: headache(s), lack of coordination, dizziness, confusion, behavioral changes or Slurred speech present [facility] ED PFSH: Medical History History of mononucleosis Month of December 2020 Hypertension Diagnosed at 53 and controlled with medication managed by PMD. No pertinent past medical history Denies: diabetes, seizures, DVT/PE, asthma. PCP: Dr. Saldivar Surgical History S/P section x 3 S/P dilation and curettage Done for miscarriage S/P tubal ligation Performed at time of her third S/P wisdom tooth extraction Family History Father Heart disease Stroke Hypertension Mother Thyroid condition Polycythemia vera at age 90 Family/Other Breast cancer paternal aunt, diagnosed in her 70s. 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 laceration NOSE: Normal external nose present TYMPANIC MEMBRANE: TM's normal bilaterally MOUTH: other (no intraoral injury) Eye: COMMON NORMALS: Equal, round and reactive pupils present, EOMs intact bilaterally and conjunctivae normal GENERAL EYE: normal light reflex VISUAL ACUITY: Yes acuity normal ALIGNMENT: Yes alignment normal C ONJUNCTIVA: Yes conjunctivae normal PUPIL: Yes Equal, round and reactive pupils present DIRECT OPHTHALMOSCOPY: Yes normal light reflex Neck/C-Spine: COMMON NORMALS: full ROM GENERAL: Yes normal visual inspection CERVICAL SPINE: No pain with cervical ROM and No Cervical spine tenderness Back/Pelvis: COMMON NORMALS: thoracic and lumbar spine normal to inspection, no thoracic nor lumbar tenderness and thoraco-lumbar ROM normal Extremity: COMMON NORMALS: normal to inspection GENERAL: Yes normal exam except as noted Neuro: DANIEL COMA SCALE: document [facility]CS findings [place] coma scale eye opening: Spontaneous [place] coma scale verbal response: Orientated Daniel coma scale motor response: Obey commands Daniel coma scale total score: 15 COMMON NORMALS: patient oriented x3, CN's II-XII intact bilaterally, moves all extremities, no focal motor deficits, no sensory deficits noted and gait normal SENSORIUM/ORIENTATION: Yes alert, Yes oriented to person, Yes oriented to place and Yes oriented to time Procedures Laceration Laceration 1: Site: face (R orbital) Side (If applicable): right Size (cm): 1.5 Description: linear Depth: simple, single layer Local Anesthetic: lidocaine 1% Amount of anesthesia used (mL): 1.0 Pre-repair: wound explored and irrigated extensively Skin layer closed with: nylon Size (cm): 5-0 Number of sutures: 4 Technique: simple, interrupted Course Vital Signs: Vital signs: Vital Signs Temperature 99.0 F 03/01/23 19:59 Pulse Rate 82 03/01/23 19:59 Respiratory Rate 16 03/01/23 19:59 Blood Pressure 154/81 03/01/23 19:59 Pulse Oximetry 100 03/01/23 19:59 Oxygen Delivery Me thod Room Air 03/01/23 19:59 MDM - Fall Medical Decision Making CT head/facial bones negative. Laceration was repaired as documented. Wound care/infection precautions discussed. Return to ED precautions given. Lab Data Radiology Impressions Face CT 03/01/23 20:28 IMPRESSION: 1. Negative for fracture or dislocation. 2. Right periorbital soft tissue swelling. Head CT 03/01/23 20:28 IMPRESSION: No acute intracranial abnormality. Discharge Plan Discharge Patient Disposition: Home Clinical Impression: Periorbital hematoma of right eye Laceration of periorbital area Qualifiers: Encounter type: initial encounter Qualified Code(s): S01.81XA - Laceration without foreign body of other part of head, initial encounter Condition: Stable Prescriptions: No Action aspirin 81 mg tablet,delayed release (DR/EC) 81 mg PO DAILY clopidogrel 75 mg tablet 75 mg PO DAILY Qty: 90 3RF multivitamin Tablet 1 tab PO DAILY citalopram 20 mg tablet 20 mg .ROUTE .COMPLEX Qty: 30 6RF Rx Instructions: 20 mg; hydroxyzine HCl 10 mg tablet 10 mg PO TID PRN (Reason: itching) Qty: 30 0RF pantoprazole 40 mg tablet,delayed release (DR/EC) See Rx Instructions .ROUTE .COMPLEX Qty: 90 3RF Dose Instruction: TAKE ONE TABLET BY MOUTH DAILY Rx Instructions: TAKE ONE TABLET BY MOUTH DAILY losartan 50 mg tablet See Rx Instructions .ROUTE .COMPLEX Qty: 90 3RF Dose Instruction: TAKE ONE TABLET BY MOUTH DAILY Rx Instructions: TAKE ONE TABLET BY MOUTH DAILY atorvastatin 40 mg tablet 40 mg PO BEDTIME Qty: 90 3RF Discharge Orders: Discharge ED (Routine); Ordered 03/01/23 Ordered By: Mariana Hurd Referrals: Ignacio Saldivar MD [Primary Care Provider] - Patient Instructions: Care For Your Stitches (DC), Facial Laceration (ED) Activity Restrictions/Additional Instructions: Keep wound/laceration clean with warm soap and water twice daily. Monitor for signs of infection such as redness, swelling, increased pain, or drainage. Please seek medical re-evaluation if these occur. If you received sutures today these will need to be removed (unless you were told by the provider that they are absorbable). The provider should have discussed with you the length of time until removal-5 TO 7 DAYS. You may return to the emergency department for this service. Coding Level of Care Code ED Surveillance Sensor Operator for Carrie Yadav
--- NOTE | 2023-03-01 20:28 | CTR_ITS ---
PROCEDURE INFORMATION: Exam: CT Maxillofacial Without Contrast Exam date and time: 03/01/2023 8:43 PM Age: 62 years old Clinical indication: Injury or trauma; Fall; Blunt trauma (contusions or hematomas); Orbit/periorbital; Right; Additional info: Fall, R facial trauma TECHNIQUE: Imaging protocol: Computed tomography of the face without contrast. Radiation optimization: All CT scans at this facility use at least one of these dose optimization techniques: automated exposure control; mA and/or kV adjustment per patient size (includes targeted exams where dose is matched to clinical indication); or iterative reconstruction. REPORTING DATA: Count of CT and Cardiac NM exams in prior 12 months: This patient has received 2 known CTs and 0 known cardiac nuclear medicine studies in the 12 months prior to the current study. COMPARISON: CT head wo con* [id number] 03/01/2023 8:40 PM RADIATION DOSE METRICS: Total DLP (mGy-cm): 580.72 FINDINGS: Orbital cavities: Orbits are normal. Globes are unremarkable. Bones/joints: No acute fracture. Paranasal sinuses: Normal. No air-fluid levels. Soft tissues: Right periorbital soft tissue swelling. CT/CT facial bones wo con* [id number] IMPRESSION: 1. Negative for fracture or dislocation. 2. Right periorbital soft tissue swelling.
--- NOTE | 2023-03-01 20:28 | CTR_ITS ---
PROCEDURE INFORMATION: Exam: CT Head Without Contrast Exam date and time: 03/01/2023 8:40 PM Age: 62 years old Clinical indication: Injury or trauma; Fall; Blunt trauma (contusions or hematomas); Consciousness not specified; Additional info: Fall/trauma TECHNIQUE: Imaging protocol: Computed tomography of the head without contrast. Radiation optimization: All CT scans at this facility use at least one of these dose optimization techniques: automated exposure control; mA and/or kV adjustment per patient size (includes targeted exams where dose is matched to clinical indication); or iterative reconstruction. REPORTING DATA: Count of CT and Cardiac NM exams in prior 12 months: This patient has received 2 known CTs and 0 known cardiac nuclear medicine studies in the 12 months prior to the current study. COMPARISON: MR head wo con* [id number] 01/01/2023 11:18 AM RADIATION DOSE METRICS: Total DLP (mGy-cm): 1049.08 FINDINGS: Brain: Normal. No hemorrhage. Unremarkable white matter. No mass effect. Cerebral ventricles: No ventriculomegaly. Paranasal sinuses: Visualized sinuses are unremarkable. No fluid levels. Mastoid air cells: Visualized mastoid air cells are well aerated. Bones/joints: Unremarkable. No acute fracture. Soft tissues: Right periorbital soft tissue swelling. CT/CT head wo con* [id number] IMPRESSION: No acute intracranial abnormality.
== END 2023-03-01 21:34 | disposition home or self-care (01) ==
PROVIDERS: Emergency Provider Physician Assistant; PCP Family Medicine
DX: S01.111A Laceration without foreign body of right eyelid and periocular area, initial encounter (principal); S00.11XA Contusion of right eyelid and periocular area, initial encounter; Z79.82 Long term (current) use of aspirin; Z79.02 Long term (current) use of antithrombotics/antiplatelets; I10 Essential (primary) hypertension; W01.10XA Fall on same level from slipping, tripping and stumbling with subsequent striking against unspecified object, initial encounter
CPT/HCPCS: 12011; 70450; 70486; 99284

== ENCOUNTER 2023-05-02 14:24 | Outpatient (CLI) | payer BC, SELFPAY ==
--- NOTE | 2023-05-02 14:30 | MM_ITS ---
WS: [id number] BILATERAL 3D TOMOSYNTHESIS DIGITAL SCREENING MAMMOGRAPHY WITH CAD CLINICAL INFORMATION: Z12.39 - Encounter for other screening for malignant neop... HISTORY: Screening mammogram. No current complaints. COMPARISON: 2021 TECHNIQUE: Bilateral CC and MLO views. FINDINGS: The breasts are composed of heterogeneous fibroglandular density tissue, which can limit the detectio n of small underlying mass lesions. No suspicious mass, asymmetry, calcifications, or architectural d istortion. No evidence of malignancy. Biopsy clip RIGHT breast. Punctate clustered calcifications LEF T breast IMPRESSION: MM/[place] [id number] BI-RADS: 2-Benign FOLLOW UP: 1 Year Follow-up Recommend return to annual screening mammography.
== END 2023-05-02 14:25 | disposition home or self-care (01) ==
PROVIDERS: PCP Family Medicine; Visit Provider Nurse Practitioner Women's Health
DX: Z12.31 Encounter for screening mammogram for malignant neoplasm of breast (principal)
CPT/HCPCS: 77063; 77067

== ENCOUNTER 2023-07-17 13:15 | Observation (INO) | payer BC, SELFPAY ==
[2023-07-17 13:28] VITALS: PULSE 83; RESP 16; TEMP 37; O2SAT 99; BMI 27.6
--- NOTE | 2023-07-17 13:35 | XRR_ITS ---
PROCEDURE INFORMATION: Exam: XR Chest Exam date and time: 07/17/2023 2:17 PM Age: 62 years old Clinical indication: Cough and dyspnea; Additional info: Dyspnea/cough TECHNIQUE: Imaging protocol: Radiologic exam of the chest. Views: 1 view. COMPARISON: CR XR chest 1V portable [id number] 12/02/2022 6:02 PM FINDINGS: Lungs: There is no consolidation. Pleural spaces: There is no pleural effusion or pneumothorax. Heart/Mediastinum: Cardiomediastinal contours are unremarkable. Bones/joints: Bones are unremarkable. XR/XR chest 1V portable [id number] IMPRESSION: No acute findings.
--- NOTE | 2023-07-17 13:48 | US_ITS ---
WS: [id number] ULTRASOUND ABDOMEN LIMITED CLINICAL INFORMATION: RUQ abd pain COMPARISON: None. FINDINGS: Liver Size: Mild hepatomegaly Craniocaudal length: 17.3 cm. Echogenicity: Normal. Surface nodularity: None. Mass (size and location): None. Bile ducts Intrahepatic ducts: Normal. Common bile duct diameter: 0.5 cm. Gallbladder Cholelithiasis Gallstones: Present Gallbladder sludge: None. Gallbladder wall thickening: None. Pericholecystic fluid: None. Sonographic Alvarez sign: Absent. Pancreas Normal as visualized. Right kidney: Normal hydronephrosis: None. Size: 10.3 cm x 5.3 cm x 4.2 cm. Abdominal aorta and IVC Visualized portions are normal. Ascites: None. IMPRESSION: 1. Cholelithiasis. No significant gallbladder wall thickening or pericholecystic fluid. 2. Normal common bile duct. 3. No hydronephrosis in the RIGHT kidney. 4. Mild hepatomegaly.
[2023-07-17 13:55] LABS: Basophils % 0.2 %; Hematocrit 43.6 % (36-47); Lymphocytes # 0.9 10^3/uL (0.8-4.8); Lymphocytes % 5.1 %; Mean Corpuscular HGB Conc 33.5 g/dL (30-55); Mean Corpuscular Hemoglobin 28.6 pg (27-33); Mean Corpuscular Volume 85.5 fl (85-98); Mean Platelet Volume 9.3 fL (7.4-10.4); Monocytes # 0.8 10^3/uL (0.2-0.9); Monocytes % 4.7 %; Neutrophils # 15.51 10^3/uL (1.8-7.7); Neutrophils % 89.7 %; Nucleated Red Blood Cells % 0 %; Platelet Count 299 10^3/cmm (157-399); Red Cell Distribution Width 13.1 % (12.1-15.1)
[2023-07-17] MEDS: morphine 4 mg/mL SDV 1 mL IVP ×2 (14:01→15:03)
[2023-07-17] MEDS: ondansetron 2 mg/ML SDV 2 mL 4 MG IVP (14:01)
[2023-07-17 14:02] VITALS: BP 164/79; PULSE 71; O2SAT 100
[2023-07-17] MEDS: sodium chloride 0.9% 1,000 ML 999 ML IV ×2 (14:02→17:40)
[2023-07-17 14:09] LABS: Alanine Aminotransferase 34 U/L (0-33); Albumin Level 4.8 g/dL (3.5-5.2); Alkaline Phosphatase 109 U/L (35-105); Aspartate Amino Transferase 16 U/L (0-32); Blood Urea Nitrogen 11 mg/dL (8-23); Carbon Dioxide 24 mmol/L (22-29); Chloride 100 mmol/L (98-107); Globulin 2.4 g/dL (1.3-4.6); Glomerular Filtration Rate 84.2 mL/min (90-130); Glucose 197 mg/dL (65-115); Lipase 17 U/L (13-60); Osmolality Calculated 287 mOsm/kg (285-295); Sodium 136 mmol/L (136-145); Total Bilirubin 1.2 mg/dL (0.15-1.2); Total Protein 7.2 g/dL (6.6-8.7)
--- NOTE | 2023-07-17 14:43 | ED_ITS ---
HPI - Abdominal Pain General: Chief Complaint: Abdominal Pain Stated Complaint: Abd Pain/ Vomiting Time Seen by Provider: 07/17/23 13:34 Source: patient Mode of arrival: ambulatory History of Present Illness: 62-year-old female presents to the emergency room with persistent bilious nausea and vomiting the last several hours. No hematemesis or coffee-ground emesis. She is not anything that exacerbates or relieves it. She has had other episodes in the past have not been nearly as intense with epigastric and right upper quad rant pain but did not involve the vomiting. Denies hematochezia or melena no fever sweats or chills MD elicited complaint: abdominal pain Onset (ago): hour(s) Pain Consistency: constant Location: Epigastric and RUQ Severity: moderate Quality: cramping Exacerbating factors: nothing Relieving factors: nothing Associated Symptoms: Denies anorexia, belching, bloating, change in bowel habits, change in stool character, chills, coffee ground emesis, constipation, GI cramping, diarrhea, dyspepsia, dysuria, excessive flatus, fever(s), heartburn, hematochezia, hematuria, hematemesis, fecal incontinence, loose stools, melena, nausea, poor appetite, syncope and vomiting Review of Systems Const: Denies: fever(s) or chills Card: Denies: syncope Resp: Denies: dyspnea GI: Denies: nausea, vomiting, hematemesis, coffee ground emesis, heartburn, diarrhea, constipation, bloating, GI cramping, belching, excessive flatus, fecal incontinence, change in bowel habits, change in stool character, hematochezia or melena : Denies: dysuria or hematuria Musc: Denies: neck pain or back pain Skin/Breast: Denies: rash COUNT INCLUDES THE [facility] ED PFSH: Medical History History of mononucleosis Month of December 2020 Hypertension Diagnosed at 53 and controlled with medication managed by PMD. No pertinent past medical history Denies: diabetes, seizures, DVT/PE, asthma. PCP: Dr. Saldivar Surgical History S/P section x 3 S/P dilation and curettage Done for miscarriage S/P tubal ligation Performed at time of her third S/P wisdom tooth extraction Family History Father Heart disease Stroke Hypertension Mother Thyroid disease Polycythemia vera at age 90 Family/Other Breast cancer paternal aunt, diagnosed in her 70s. 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 [employer] Do you think of yourself as: Straight/Heterosexual Physical Exam Const: GENERAL APPEARANCE: cooperative and comfortable ORIENTATION/CONSCIOUSNESS: Yes awake, Yes oriented to person, Yes oriented to place and Yes oriented to time HENMT: COMMON NORMALS: normocephalic, atraumatic and hearing grossly normal bilaterally HEAD & SCALP: normocephalic and atraumatic Resp: COMMON NORMALS: normal respiratory effort, No retractions, No use of accessory muscles and clear to auscultation bilaterally AUSCULTATION: clear to auscultation bilaterally Cardio: COMMON NORMALS: regular rate, regular rhythm and No murmurs present (Cardio) RATE: regular rate RHYTHM: regular rhythm GI: AUSCULTATION: Yes normoactive bowel sounds PALPATION: Yes Tenderness to palpation present (GI) (Epigastric) Details: RUQ (Mildly positive Alvarez's) and No Guarding due to palpation present (GI) : COMMON NORMALS: Yes no CVA tenderness BLADDER/KIDNEY EXAM: Yes no CVA tenderness Back/Pelvis: COMMON NORMALS: no CVA tenderness Extremity: COMMON NORMALS: normal to inspection, capillary refill normal, no clubbing, cyanosis or edema, no calf tenderness and no pedal edema Neuro: SENSORIUM/ORIENTATION: Yes oriented to person, Yes oriented to place and Yes oriented to time Skin: COMMON NORMALS: no rashes or lesions noted GENERAL SKIN EXAM: no rashes or lesions noted Course Vital Signs: Vital signs: Vital Signs Temperature 98.3 F 07/18/23 11:18 Pulse Rate 79 07/18/23 11:18 Respiratory Rate 16 07/18/23 11:18 Blood Pressure 132/79 07/18/23 11:18 Pulse Oximetry 95 07/18/23 11:18 Oxygen Delivery Me thod Room Air 07/18/23 11:18 MDM - Abdominal Pain Medical Decision Making Leukocytosis with acute right upper quadrant abdominal pain. T. bili not elevated cholelithiasis on ultrasound. CT did not show any other pathology. Dr. Dai been consulted who requested CT. We will admit the patient for cholelithiasis with early cholecystitis antibiotics started keep n.p.o. Medical Records I reviewed the patient's medical records. Lab Data I reviewed the patient's lab results. 07/18/23 04:20 07/18/23 04:20 Labs/Radiology: Radiology Impressions Chest X-Ray 07/17/23 13:35 IMPRESSION: No acute findings. Abdomen/Pelvis CT 07/17/23 15:31 IMPRESSION: There are no acute concerning abnormalities. Gallstones are identified although there are no CT findings to suggest cholecystitis. If there is desire for further evaluation, a right upper quadrant ultrasound could be performed. Laboratory Results WBC 17.30 10^3/uL (3.29-11.43) H 07/17/23 13:42 RBC 5.10 10^6/uL (3.85-5.65) 07/17/23 13:42 Hgb 14.60 g/dL (11.27-16.99) 07/17/23 13:42 Hct 43.6 % (36-47) 07/17/23 13:42 MCV 85.5 fl (85-98) 07/17/23 13:42 MCH 28.6 pg (27-33) 07/17/23 13:42 MCHC 33.5 g/dL (30-55) 07/17/23 13:42 RDW 13.1 % (12.1-15.1) 07/17/23 13:42 Plt Count 299 10^3/cmm (157-399) 07/17/23 13:42 MPV 9.3 fL (7.4-10.4) 07/17/23 13:42 Neut % (Auto) 89.7 % 07/17/23 13:42 Lymph % (Auto) 5.1 % 07/17/23 13:42 [place] % (Auto) 4.7 % 07/17/23 13:42 Eos % (Auto) 0.0 % 07/17/23 13:42 Baso % (Auto) 0.2 % 07/17/23 13:42 Neut # (Auto) 15.51 10^3/uL (1.8-7.7) H 07/17/23 13:42 Lymph # (Auto) 0.9 10^3/uL (0.8-4.8) 07/17/23 13:42 [place] # (Auto) 0.8 10^3/uL (0.2-0.9) 07/17/23 13:42 Eos # (Auto) 0.0 10^3/uL (0.0-0.8) 07/17/23 13:42 Baso # (Auto) 0.0 10^3/uL (0.0-0.1) 07/17/23 13:42 Nucleated RBC % (auto) 0 % 07/17/23 13:42 Nucleated RBCs # 0.0 /100WBC 07/17/23 13:42 Sodium 136 mmol/L (136-145) 07/17/23 13:42 Potassium 4.0 mmol/L (3.5-5.1) 07/17/23 13:42 Chloride 100 mmol/L (98-107) 07/17/23 13:42 Carbon Dioxide 24 mmol/L (22-29) 07/17/23 13:42 Anion Gap 16.0 (5-19) 07/17/23 13:42 BUN 11 mg/dL (8-23) 07/17/23 13:42 Creatinine 0.7 mg/dL (0.5-0.9) 07/17/23 13:42 GFR Calculation 84.2 mL/min (90-130) L 07/17/23 13:42 Glucose 197 mg/dL (65-115) H 07/17/23 13:42 Calculated Osmolality 287 mOsm/kg (285-295) 07/17/23 13:42 Calcium 10.0 mg/dL (8.5-10.5) 07/17/23 13:42 Total Bilirubin 1.2 mg/dL (0.15-1.2) 07/17/23 13:42 AST 16 U/L (0-32) 07/17/23 13:42 ALT 34 U/L (0-33) H 07/17/23 13:42 Alkaline Phosphatase 109 U/L (35-105) H 07/17/23 13:42 Total Protein 7.2 g/dL (6.6-8.7) 07/17/23 13:42 Albumin 4.8 g/dL (3.5-5.2) 07/17/23 13:42 Globulin 2.4 g/dL (1.3-4.6) 07/17/23 13:42 Lipase 17 U/L (13-60) 07/17/23 13:42 Urine Color Yellow (Yellow) 07/17/23 14:33 Urine Appearance Clear (CLEAR) 07/17/23 14:33 Urine pH 6 (5-7) 07/17/23 14:33 Ur Specific Terry 1.020 (1.005-1.030) 07/17/23 14:33 Urine Protein Trace (Negative) 07/17/23 14:33 Urine Glucose (UA) 1+ (Normal) H 07/17/23 14:33 Urine Ketones 1+ (Negative) H 07/17/23 14:33 Urine Blood 2+ (Negative) H 07/17/23 14:33 Urine Nitrate Negative (Negative) 07/17/23 14:33 Urine Bilirubin Neg (Negative) 07/17/23 14:33 Urine Urobilinogen Norm mg/dL (Negative) 07/17/23 14:33 Ur Leukocyte Esterase Negative (Negative) 07/17/23 14:33 Urine RBC 0-4 /hpf (0-2) H 07/17/23 14:33 Urine WBC 0-4 /hpf (0-5) H 07/17/23 14:33 Ur Squamous Epith Cells Rare /hpf (0-5) 07/17/23 14:33 Calcium Oxalate Crystal Rare /hpf 07/17/23 14:33 Amorphous Sediment Trace /hpf 07/17/23 14:33 Urine Bacteria Trace /hpf (NONE) 07/17/23 14:33 Urine Mucus 2+ /hpf 07/17/23 14:33 All radiology interpretation(s) finalized by discharge Discharge Plan Discharge Patient Disposition: Admitted As Inpatient Admit Provider: Weston Dai Clinical Impression: Acute cholecystitis due to biliary calculus Condition: Stable Discharge Diet: Advance as tolerated Discharge Activity: Resume usual activity Coding Level of Care Code ED 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
[2023-07-17 15:08] LABS: Bilirubin Urine Neg (Negative); Blood Urine 2+ (Negative); Glucose Urine UA 1+ (Normal); Ketones Urine 1+ (Negative); Nitrate Urine Negative (Negative); Protein Urine Trace (Negative); Urine Appearance Clear (CLEAR); Urine Color Yellow (Yellow); Urobilinogen Urine Norm (Negative); pH Urine 6 (5-7)
[2023-07-17 15:09] LABS: Add Urine Microscopic? YES; Leukocyte Esterase Urine Negative (Negative)
[2023-07-17 15:14] LABS: Amorphous Sediment Urine TRACE /hpf; Bacteria Urine TRACE /hpf; Calcium Oxalate Crystals Urine RARE /hpf; Mucus Urine 2+ /hpf; RBC Urine 0-4 /hpf (0-2); Squamous Epithelial Cell Urine RARE /hpf (0-5); WBC Urine 0-4 /hpf (0-5)
[2023-07-17 15:15] LABS: Add Urine Culture? No
--- NOTE | 2023-07-17 15:31 | CTR_ITS ---
PROCEDURE INFORMATION: Exam: CT Abdomen And Pelvis With Contrast Exam date and time: 07/17/2023 4:01 PM Age: 62 years old Clinical indication: Abdominal pain TECHNIQUE: Imaging protocol: Computed tomography of the abdomen and pelvis with contrast. Radiation optimization: All CT scans at this facility use at least one of these dose optimization techniques: automated exposure control; mA and/or kV adjustment per patient size (includes targeted exams where dose is matched to clinical indication); or iterative reconstruction. Contrast material: OMNI 350; Contrast volume: 100 ml; Contrast route: INTRAVENOUS (IV); REPORTING DATA: Count of CT and Cardiac NM exams in prior 12 months: This patient has received 4 known CTs and 0 known cardiac nuclear medicine studies in the 12 months prior to the current study. COMPARISON: US gall bladder [id number] 07/17/2023 2:03 PM RADIATION DOSE METRICS: Total DLP (mGy-cm): 680 FINDINGS: Liver: Normal. No mass. Gallbladder and bile ducts: Gallstones are identified although there are no CT findings to suggest cholecystitis. Pancreas: Normal. No ductal dilation. Spleen: Normal. No splenomegaly. Adrenal glands: Normal. No mass. Kidneys and ureters: Normal. No hydronephrosis. Stomach and bowel: Colonic diverticula are present although there are no CT findings to suggest diverticulitis. No bowel obstruction or wall thickening. Appendix: The appendix is visualized and appears normal. Intraperitoneal space: Unremarkable. No free air. No significant fluid collection. Vasculature: Unremarkable. No abdominal aortic aneurysm. Lymph nodes: Unremarkable. No enlarged lymph nodes. Urinary bladder: Unremarkable as visualized. Reproductive: Unremarkable as visualized. Bones/joints: Unremarkable. No acute fracture. Soft tissues: Unremarkable. CT/CT abdomen pelvis w con* [id number] IMPRESSION: There are no acute concerning abnormalities. Gallstones are identified although there are no CT findings to suggest cholecystitis. If there is desire for further evaluation, a right upper quadrant ultrasound could be performed.
--- NOTE | 2023-07-17 15:32 | PM.CONSULT ---
Providers/Reason For Consult Consulting Physician/Specialty*: General surgery Reason for Consult*: Abdominal pain, possible biliary colic Primary Care Provider: Ignacio Saldivar MD History of Present Illness History of Present Illness Sharyn Vargas is a 62 year old female who presents to the hospital complaining of severe nausea, vomit and abdominal pain. Patient states that since 3 AM this morning she has been experiencing severe episodes of nausea and vomit currently bilious in nature. She also complains of abdominal pain that is in the epigastrium and mid abdomen region with some cramping in the lower abdomen. Work-up in the emergency department show evidence of a white count of 17,000, gallbladder ultrasound was negative for acute cholecystitis, due to symptoms I have been consulted for evaluation for possible biliary colic requiring laparoscopic cholecystectomy. Patient also endorses having some episodes of diarrhea this morning. Review of Systems Narrative: 10 point review systems done negative otherwise noted in HPI Medications/Allergies Home Medications Medication Instructions Recorded Confirmed Last Taken Type atorvastatin 40 mg tablet 40 mg PO BEDTIME #90 tabs 12/30/22 07/17/23 07/16/23 Rx aspirin 81 mg tablet,delayed 81 mg PO DAILY 01/23/23 07/17/23 07/16/23 History release citalopram 20 mg tablet 20 mg PO DAILY #90 tabs 06/09/23 07/17/23 07/16/23 Rx losartan 50 mg tablet 50 mg PO QPM 07/17/23 07/17/23 07/16/23 History pantoprazole 40 mg tablet,delayed 40 mg PO QPM 07/17/23 07/17/23 07/16/23 History release Allergies Allergy/AdvReac Type Severity Reaction Status Date / Time amoxicillin Allergy Unknown Verified 07/17/23 15:34 doxycycline Allergy rash Verified 07/17/23 15:34 demeclocycline AdvReac Sun Verified 07/17/23 15:34 [From Declomycin] sensitivity and stomach ache lisinopril AdvReac dizziness Verified 07/17/23 15:34 PFSH Acute PFSH: Medical History History of mononucleosis Month of December 2020 Hypertension Diagnosed at 53 and controlled with medication managed by PMD. No pertinent past medical history Denies: diabetes, seizures, DVT/PE, asthma. PCP: Dr. Saldivar Surgical History S/P section x 3 S/P dilation and curettage Done for miscarriage S/P tubal ligation Performed at time of her third S/P wisdom tooth extraction Family History Father Heart disease Stroke Hypertension Mother Thyroid condition Polycythemia vera at age 90 Family/Other Breast cancer paternal aunt, diagnosed in her 70s. 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 Nose : Mucous membranes are without erythema. Lungs : Equal chest rise bilaterally, no use of accessory muscles, trachea is midline. CV : Rate and rhythm are normal. Abdomen : Soft, minimal tenderness to palpation in the mid abdomen, no Alvarez sign, no right upper quadrant tenderness Extremities : No edema. Upper extremities are normal bilaterally. Back : non-tender to palpation, no CVA tenderness. Data 07/17/23 13:42 07/17/23 13:42 A&P Assessment and plan (1) Abdominal pain: Plan After complete history, physical examination and review of all available clinical data the following is my assessment. Patient who presents with symptoms of severe nausea and intractable vomiting as well as abdominal pain. Have been consulted for possible biliary colic. Laboratory work-up is remarkable for elevated white count to 17,000, LFTs are unremarkable except for a very mild elevation of the AST and alk phos in the borderline limit of high. Clinical examination is not consistent with biliary colic at the time of my evaluation, abdominal exam is pretty benign and there is only minimal tenderness in the midepigastrium and mid abdomen region. No right Upper quadrant tenderness. In addition gallbladder ultrasound is negative for evidence of acute cholecystitis. With this findings I think it would be reasonable to proceed with a CT scan of the abdomen with IV contrast to rule out any other type of intra-abdominal pathology. As symptoms are not 100% consistent with acute cholecystitis at this time. Depending on the results of the CT I will be inclined to admit the patient to the hospital, placed on IV antibiotics and discussed the possibility of laparoscopic cholecystectomy. I will follow-up with imaging. Coding Level of Care Code 02537 Diagnoses Abdominal pain R10.9
[2023-07-17] MEDS: ketorolac 30 mg/mL INJ IVP (17:41)
[2023-07-17 20:00] VITALS: BP 129/75; PULSE 89; RESP 17; TEMP 36.9; O2SAT 96
--- NOTE | 2023-07-17 20:49 | PM.HP ---
Providers/Chief Complaint Admitting Physician: Weston Dai MD Primary Care Provider: Ignacio Saldivar MD Chief Complaint: Abd Pain/ Vomiting History of Present Illness Sharyn Vargas is a 62 year old female who presented to the emergency department complaining of severe nausea, vomit and abdominal pain started at 3 AM this morning. Abdominal pain was in the epigastric and periumbilical region, work-up in the ED show evidence of elevated white count to 17,000. I was asked to evaluate this patient for possible biliary colic. After my initial evaluation symptoms did not appear to be consistent with biliary colic and therefore a CT scan of the abdomen and pelvis with contrast was obtained. CT scan was negative for evidence of intra-abdominal pathology. Due to patient's severity of symptoms and intractable vomited we decided to admit the patient for overnight observation, antibiotic therapy due to elevated white count and bowel rest. Review of Systems Narrative: 10 point review of systems done and negative otherwise noted in HPI Medications/Allergies Home Medications Medication Instructions Recorded Confirmed Last Taken Type atorvastatin 40 mg tablet 40 mg PO BEDTIME #90 tabs 12/30/22 07/17/23 07/16/23 Rx aspirin 81 mg tablet,delayed 81 mg PO DAILY 01/23/23 07/17/23 07/16/23 History release citalopram 20 mg tablet 20 mg PO DAILY #90 tabs 06/09/23 07/17/23 07/16/23 Rx losartan 50 mg tablet 50 mg PO QPM 07/17/23 07/17/23 07/16/23 History pantoprazole 40 mg tablet,delayed 40 mg PO QPM 07/17/23 07/17/23 07/16/23 History release Allergies Allergy/AdvReac Type Severity Reaction Status Date / Time amoxicillin Allergy Unknown Verified 07/17/23 15:34 doxycycline Allergy rash Verified 07/17/23 15:34 demeclocycline AdvReac Sun Verified 07/17/23 15:34 [From Declomycin] sensitivity and stomach ache lisinopril AdvReac dizziness Verified 07/17/23 15:34 PFSH Acute PFSH: Medical History History of mononucleosis Month of December 2020 Hypertension Diagnosed at 53 and controlled with medication managed by PMD. No pertinent past medical history Denies: diabetes, seizures, DVT/PE, asthma. PCP: Dr. Saldivar Surgical History S/P section x 3 S/P dilation and curettage Done for miscarriage S/P tubal ligation Performed at time of her third S/P wisdom tooth extraction Family History Father Heart disease Stroke Hypertension Mother Thyroid condition Polycythemia vera at age 90 Family/Other Breast cancer paternal aunt, diagnosed in her 70s. 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 Nose : Mucous membranes are without erythema. Lungs : Equal chest rise bilaterally, no use of accessory muscles, trachea is midline. CV : Rate and rhythm are normal. Abdomen : Soft, ND, minimal tenderness in the mid abdomen., no g/r/m Extremities : No edema. Upper extremities are normal bilaterally. Back : non-tender to palpation, no CVA tenderness. Data 07/17/23 13:42 07/17/23 13:42 A&P Assessment and plan (1) Abdominal pain: Plan After complete history, physical examination and review of all available clinical data the following is my assessment. Patient without evidence of intra-abdominal pathology in imaging studies. But continued to have severe nausea vomit and abdominal pain in the mid abdomen. Therefore we decided to admit for observation, antibiotic management due to elevated white count, hydration and serial abdominal exams. After admission patient has been feeling much better, abdominal pain has resolved, no further nausea and vomit. We will monitor for 24 to 48 hours and then plan on discharge patient home for further follow-up as outpatient. Attestations Medical Necessity Statement*: Patient will require 24 to 48 hours of hospital stay for intractable abdominal pain nausea and vomit. Coding Level of Care Code Acute Code for Chg Fwd Diagnoses Abdominal pain R10.9
[2023-07-17] MEDS: lactated ringers 1,000 ML 125 ML IV (21:40)
[2023-07-17] MEDS: pantoprazole 40 mg SDV IVP (21:40)
[2023-07-17] MEDS: ketorolac 30 mg/mL INJ 15 MG IVP (21:41)
[2023-07-17 21:42] VITALS: BP 164/79
[2023-07-17] MEDS: losartan 50 mg Tablet PO (21:42)
[2023-07-17] MEDS: metroNIDAZOLE IV 500 MG/100 ML PREMIX 100 MG IV (21:49)
[2023-07-17] MEDS: ciprofloxacin 400 MG/200 ML PREMIX 200 MG IV (22:50)
[2023-07-18] VITALS: BP 114/68; PULSE 77; RESP 17; TEMP 37; O2SAT 96
[2023-07-18] MEDS: ketorolac 30 mg/mL INJ 15 MG IVP (02:41)
[2023-07-18 04:00] VITALS: BP 120/69; PULSE 77; RESP 17; TEMP 36.9; O2SAT 95
[2023-07-18 05:14] LABS: Basophils % 0.3 %; Eosinophils # 0.1 10^3/uL (0.0-0.8); Eosinophils % 0.9 %; Hematocrit 35.1 % (36-47); Lymphocytes # 2.1 10^3/uL (0.8-4.8); Lymphocytes % 26.7 %; Mean Corpuscular HGB Conc 32.8 g/dL (30-55); Mean Corpuscular Hemoglobin 28.3 pg (27-33); Mean Corpuscular Volume 86.5 fl (85-98); Mean Platelet Volume 9.5 fL (7.4-10.4); Monocytes # 0.8 10^3/uL (0.2-0.9); Monocytes % 9.5 %; Neutrophils % 62.1 %; Nucleated Red Blood Cells % 0 %; Platelet Count 212 10^3/cmm (157-399); Red Blood Count 4.06 10^6/uL (3.85-5.65); Red Cell Distribution Width 13.3 % (12.1-15.1); White Blood Count 7.89 10^3/uL (3.29-11.43)
[2023-07-18] MEDS: metroNIDAZOLE IV 500 MG/100 ML PREMIX 100 MG IV (05:14)
[2023-07-18 05:39] LABS: Alanine Aminotransferase 20 U/L (0-33); Albumin Level 3.4 g/dL (3.5-5.2); Alkaline Phosphatase 74 U/L (35-105); Anion Gap 11.4 (5-19); Aspartate Amino Transferase 12 U/L (0-32); Blood Urea Nitrogen 10 mg/dL (8-23); Calcium 8.4 mg/dL (8.5-10.5); Carbon Dioxide 24 mmol/L (22-29); Chloride 107 mmol/L (98-107); Globulin 1.9 g/dL (1.3-4.6); Glomerular Filtration Rate 72.2 mL/min (90-130); Glucose 90 mg/dL (65-115); Magnesium 1.9 mg/dL (1.7-2.3); Osmolality Calculated 287 mOsm/kg (285-295); Potassium 3.4 mmol/L (3.5-5.1); Sodium 139 mmol/L (136-145); Total Bilirubin 1.1 mg/dL (0.15-1.2); Total Protein 5.3 g/dL (6.6-8.7)
[2023-07-18] MEDS: potassium chloride oral liq 20 mEq/15 mL UDC 40 MEQ PO (06:18)
[2023-07-18] MEDS: sucralfate 1 gm/10 mL Oral Liq UDC PO ×2 (06:19→11:01)
[2023-07-18] MEDS: lactated ringers 1,000 ML 125 ML IV (06:46)
[2023-07-18 07:22] VITALS: BP 117/71; PULSE 80; RESP 16; TEMP 36.8; O2SAT 97
[2023-07-18] MEDS: pantoprazole 40 mg SDV IVP (08:46)
[2023-07-18] MEDS: citalopram 20 mg Tablet PO (08:46)
--- NOTE | 2023-07-18 09:05 | PC.CHAP ---
Pastoral Care Encounter/Spiritual Assessment Type of Contact [] Declined corporate giving manager visit [] Patient/Family/Request visit [] Outpatient visit [] Follow-up visit [] Physician referral [] Code/Alert [x] Routine visit [] Staff referral [] Actively dying [] Patient sleeping [] Family support [] [] Out of room [] Palliative care [] [] Receiving care in room [] Pre-surgical visit [] Trauma [] Long length of stay [] ICU visit [] Other: Relational/Emotional Strength [x] Patient feels connected with others/family/visitors/staff [] Distress [] Loneliness/isolation [] Abandonment Spirituality of Patient [x] Person of Ivy [x] Attends Druze of their Ivy [x] Believes in Prayer [x] Reads Bible or Episcopal materials [] There are Spiritual issues to be addressed Dimension Specification Inspector Interventions [x] Prayer [x] Active listening [] Non-anxious presence [x] Spiritual/emotional support [] Crisis/trauma care [] Spiritual counseling [] Bereavement support [] Provided bereavement packet [] Provided Bible/devotional materials [] Provided toy/stuffed animal, coloring book to patient or family member [] Provided Communion [] Anointing/[place] [] Salvation [x] Completed spiritual assessment [] Other: Impact on Illness or Injury [] Angry [] Fearful [] Anxious [] Often cries [] Exhaustion [] Unable to work [] Unable to attend zoroastrianism [] Unable to walk/stand [] Unable to read [] Unable to drive [] Unable to eat/drink [] Unable to sleep [] Unable to be with family [] Patient intubated [] Other: Summary Time spent with patient 10 min
[2023-07-18 10:23] LABS: Add Urine Culture? No; Add Urine Microscopic? YES; Bacteria Urine TRACE /hpf; Bilirubin Urine Neg (Negative); Blood Urine Neg (Negative); Glucose Urine UA Norm (Normal); Ketones Urine Negative (Negative); Leukocyte Esterase Urine Trace (Negative); Mucus Urine TRACE /hpf; Nitrate Urine Negative (Negative); Protein Urine Neg (Negative); RBC Urine 0-4 /hpf (0-2); Squamous Epithelial Cell Urine 0-4 /hpf (0-5); Urine Appearance Clear (CLEAR); Urine Color Yellow (Yellow); Urobilinogen Urine Norm (Negative); WBC Urine 0-4 /hpf (0-5); pH Urine 5 (5-7)
[2023-07-18] MEDS: ciprofloxacin 400 MG/200 ML PREMIX 200 MG IV (11:00)
[2023-07-18 11:18] VITALS: BP 132/79; PULSE 79; RESP 16; TEMP 36.8; O2SAT 95
--- NOTE | 2023-07-18 13:15 | P.DS_ITS ---
Discharge Providers Date of Admission: 07/17/23 20:51 Date of Discharge: July 18, 2023 Attending Provider at Admission: Weston Dai MD Attending Provider at Discharge: Weston Dai MD Primary Care Provider: Ignacio Saldivar MD Diagnoses at Discharge Discharge Diagnosis (1) Abdominal pain: Details from hospital stay: 62-year-old female who presented yesterday to the emergency department complaining of mid abdomen cramping pain severe nausea with vomit which was intractable. I was consulted for possible biliary colic. After further evaluation symptoms did not seem to correspond with dose of biliary colic we will obtain a CT scan of the abdomen pelvis with contrast which was negative for evidence of intra-abdominal pathology. At this point we decided to admit the patient for overnight observation. In the last 24 hours patient has improved significantly, symptoms have completely resolved. She is tolerating diet, ambulating, no further nausea or vomit. I think probably her symptoms were most likely caused by an acute gastritis rather than biliary colic. I will plan to offer endoscopy as outpatient. Status: Acute Reason for Visit Reason for Visit: Abd Pain/ Vomiting Physical Exam GI: OTHER: Abdomen is soft, nontender nondistended. Discharge Data Studies Completed and Pending Completed Studies During Hospitalization Category Date Time Status CT abdomen pelvis w con* [id number] Stat Cat Scan 07/17/23 15:31 Completed XR chest 1V portable [id number] Stat Exams 07/17/23 13:35 Completed US gall bladder 78962 Stat Ultrasound 07/17/23 13:48 Completed Pending at discharge Category Date Time Status BMP [Basic Metabolic Panel] AM LABS Lab 07/19/23 04:00 Ordered BMP [Basic Metabolic Panel] AM LABS Lab 07/20/23 04:00 Ordered CBC Auto Diff [Complete Blood Count w/Auto] AM LABS Lab 07/19/23 04:00 Ordered CBC Auto Diff [Complete Blood Count w/Auto] AM LABS Lab 07/20/23 04:00 Ordered LFT [Liver Panel] AM LABS Lab 07/19/23 04:00 Ordered LFT [Liver Panel] AM LABS Lab 07/20/23 04:00 Ordered Magnesium AM LABS Lab 07/19/23 04:00 Ordered Magnesium AM LABS Lab 07/20/23 04:00 Ordered Radiology Impressions Chest X-Ray 07/17/23 13:35 IMPRESSION: No acute findings. Abdomen/Pelvis CT 07/17/23 15:31 IMPRESSION: There are no acute concerning abnormalities. Gallstones are identified although there are no CT findings to suggest cholecystitis. If there is desire for further evaluation, a right upper quadrant ultrasound could be performed. Laboratory Results WBC 7.89 10^3/uL (3.29-11.43) 07/18/23 04:20 RBC 4.06 10^6/uL (3.85-5.65) 07/18/23 04:20 Hgb 11.50 g/dL (11.27-16.99) 07/18/23 04:20 Hct 35.1 % (36-47) L 07/18/23 04:20 MCV 86.5 fl (85-98) 07/18/23 04:20 MCH 28.3 pg (27-33) 07/18/23 04:20 MCHC 32.8 g/dL (30-55) 07/18/23 04:20 RDW 13.3 % (12.1-15.1) 07/18/23 04:20 Plt Count 212 10^3/cmm (157-399) 07/18/23 04:20 MPV 9.5 fL (7.4-10.4) 07/18/23 04:20 Neut % (Auto) 62.1 % 07/18/23 04:20 Lymph % (Auto) 26.7 % 07/18/23 04:20 [place] % (Auto) 9.5 % 07/18/23 04:20 Eos % (Auto) 0.9 % 07/18/23 04:20 Baso % (Auto) 0.3 % 07/18/23 04:20 Neut # (Auto) 4.90 10^3/uL (1.8-7.7) 07/18/23 04:20 Lymph # (Auto) 2.1 10^3/uL (0.8-4.8) 07/18/23 04:20 [place] # (Auto) 0.8 10^3/uL (0.2-0.9) 07/18/23 04:20 Eos # (Auto) 0.1 10^3/uL (0.0-0.8) 07/18/23 04:20 Baso # (Auto) 0.0 10^3/uL (0.0-0.1) 07/18/23 04:20 Nucleated RBC % (auto) 0 % 07/18/23 04:20 Nucleated RBCs # 0.0 /100WBC 07/18/23 04:20 Sodium 139 mmol/L (136-145) 07/18/23 04:20 Potassium 3.4 mmol/L (3.5-5.1) L 07/18/23 04:20 Chloride 107 mmol/L (98-107) 07/18/23 04:20 Carbon Dioxide 24 mmol/L (22-29) 07/18/23 04:20 Anion Gap 11.4 (5-19) 07/18/23 04:20 BUN 10 mg/dL (8-23) 07/18/23 04:20 Creatinine 0.8 mg/dL (0.5-0.9) 07/18/23 04:20 GFR Calculation 72.2 mL/min (90-130) L 07/18/23 04:20 Glucose 90 mg/dL (65-115) 07/18/23 04:20 Calculated Osmolality 287 mOsm/kg (285-295) 07/18/23 04:20 Calcium 8.4 mg/dL (8.5-10.5) L 07/18/23 04:20 Magnesium 1.9 mg/dL (1.7-2.3) 07/18/23 04:20 Total Bilirubin 1.1 mg/dL (0.15-1.2) 07/18/23 04:20 Direct Bilirubin 0.20 mg/dL (0.00-0.30) 07/18/23 04:20 AST 12 U/L (0-32) 07/18/23 04:20 ALT 20 U/L (0-33) 07/18/23 04:20 Alkaline Phosphatase 74 U/L (35-105) 07/18/23 04:20 Total Protein 5.3 g/dL (6.6-8.7) L D 07/18/23 04:20 Albumin 3.4 g/dL (3.5-5.2) L 07/18/23 04:20 Globulin 1.9 g/dL (1.3-4.6) 07/18/23 04:20 Lipase 17 U/L (13-60) 07/17/23 13:42 Urine Color Yellow (Yellow) 07/18/23 09:00 Urine Appearance Clear (CLEAR) 07/18/23 09:00 Urine pH 5 (5-7) 07/18/23 09:00 Ur Specific [place] 1.010 (1.005-1.030) 07/18/23 09:00 Urine Protein Neg (Negative) 07/18/23 09:00 Urine Glucose (UA) Norm (Normal) 07/18/23 09:00 Urine Ketones Negative (Negative) 07/18/23 09:00 Urine Blood Neg (Negative) 07/18/23 09:00 Urine Nitrate Negative (Negative) 07/18/23 09:00 Urine Bilirubin Neg (Negative) 07/18/23 09:00 Urine Urobilinogen Norm mg/dL (Negative) 07/18/23 09:00 Ur Leukocyte Esterase Trace (Negative) H 07/18/23 09:00 Urine RBC 0-4 /hpf (0-2) H 07/18/23 09:00 Urine WBC 0-4 /hpf (0-5) H 07/18/23 09:00 Ur Squamous Epith Cells 0-4 /hpf (0-5) H 07/18/23 09:00 Calcium Oxalate Crystal Rare /hpf 07/17/23 14:33 Amorphous Sediment Not Reportable 07/18/23 09:00 Urine Bacteria Trace /hpf (NONE) 07/18/23 09:00 Urine Mucus Trace /hpf 07/18/23 09:00 Vitals Last Vital Signs Temp 98.3 F 07/18/23 11:18 Pulse 79 07/18/23 11:18 Resp 16 07/18/23 11:18 BP 132/79 07/18/23 11:18 Pulse Ox 95 07/18/23 11:18 O2 Del Method Room Air 07/18/23 11:18 Discharge Plan Discharge Patient Disposition: Home Condition: Stable Prescriptions: New pantoprazole 40 mg tablet,delayed release (DR/EC) 40 mg PO BID 28 Days Qty: 56 0RF sucralfate 100 mg/mL suspension 1 g PO BID 28 Days Qty: 560 0RF metoclopramide HCl 10 mg tablet 10 mg PO Q6H PRN (Reason: nausea and vomiting) Qty: 30 0RF ciprofloxacin HCl 500 mg tablet 250 mg PO Q12H Qty: 7 0RF metronidazole 500 mg tablet 500 mg PO Q8H Qty: 10 0RF Continued aspirin 81 mg tablet,delayed release (DR/EC) 81 mg PO DAILY atorvastatin 40 mg tablet 40 mg PO BEDTIME Qty: 90 3RF citalopram 20 mg tablet 20 mg PO DAILY Qty: 90 2RF losartan 50 mg tablet 50 mg PO QPM Discontinued pantoprazole 40 mg tablet,delayed release (DR/EC) 40 mg PO QPM Discharge Orders: Discharge Order (Routine); Ordered 07/18/23 Ordered By: Weston Dai Referrals: Weston Dai MD [Physician] - (2 weeks We have notified your physician's clinic of the need for a follow-up appointment to be scheduled. If you have not heard from them within the next 2 business days, please call them directly. You may also reach out to our business center manager at [phone] and she can assist you.) Ignacio Saldivar MD [Primary Care Provider] - (We have notified your physician's clinic of the need for a follow-up appointment to be scheduled. If you have not heard from them within the next 2 business days, please call them directly. You may also reach out to our business center manager at [phone] and she can assist you.) Discharge Diet: Advance as tolerated Discharge Activity: Resume usual activity Patient Instructions: Opioid Safety Discharge Attestations Time Spent in Discharge Care*: less than 30 min Quality Metrics Clinical Quality Measures [ No reported AMI, CVA or VTE this stay] Coding Level of Care Code Acute Code for Chg Fwd Diagnoses Abdominal pain R10.9
== END 2023-07-18 14:58 | disposition home or self-care (01) ==
LOC: ER 18:23 → MEDSURG 07-18 06:45
PROVIDERS: Admitting Provider Surgery; Emergency Provider Family Medicine; PCP Family Medicine; Visit Provider Surgery
DX: R10.9 Unspecified abdominal pain (principal); R11.2 Nausea with vomiting, unspecified; Z79.82 Long term (current) use of aspirin; I10 Essential (primary) hypertension; K80.20 Calculus of gallbladder without cholecystitis without obstruction; R16.0 Hepatomegaly, not elsewhere classified
CPT/HCPCS: 36415; 71045; 74177; 76705; 80048; 80053; 80076; 81001; 83690; 83735; 85025; 96361; 96374; 96375; 96376; 99285; C9113; G0378; J0744; J1885; J2270; J2405; J3490; J7030; J7120

== ENCOUNTER 2023-09-15 10:51 | Emergency (ER) | payer MEDICARE, OTHER, SELFPAY ==
[2023-09-15] VITALS (21 sets, daily range): BP systolic 133–154; BP diastolic 65–89; PULSE 67–93; RESP 8–22; TEMP 37.4; O2SAT 84–100; BMI 28.3
--- NOTE | 2023-09-15 11:22 | ECG_ITS ---
[facility] Test Date: 2023-09-15 Pat Name: Sharyn Vargas Department: Room: Gender: Female Patient Access Representative: : 1960 Requested By: Tesfaye Merrill Order Number: [id number] Flower MD: Fredy Qureshi M.D. Measurements Intervals [place] Rate: 83 P: 60 MS: 191 QRS: 62 QRSD: 106 T: 66 QT: 413 QTc: 486 Interpretive Statements SINUS RHYTHM POSSIBLE LEFT ATRIAL ENLARGEMENT [-0.1mV P-WAVE IN V1/V2] Compared to ECG 01/23/2023 12:34:51 No significant changes Electronically Signed On 09-15-2023 12:15:28 CONTROL AREA OPERATOR by Fredy Qureshi M.D. [id number]
[2023-09-15] MEDS: sodium chloride 0.9% 1,000 ML 999 ML IV (11:30)
[2023-09-15 11:36] LABS: Basophils % 0.1 %; Eosinophils % 0.1 %; Hematocrit 39.5 % (36-47); Lymphocytes # 0.7 10^3/uL (0.8-4.8); Lymphocytes % 5.8 %; Mean Corpuscular HGB Conc 33.9 g/dL (30-55); Mean Corpuscular Hemoglobin 28.3 pg (27-33); Mean Corpuscular Volume 83.5 fl (85-98); Mean Platelet Volume 9.5 fL (7.4-10.4); Monocytes # 0.4 10^3/uL (0.2-0.9); Monocytes % 3.6 %; Neutrophils % 89.9 %; Nucleated Red Blood Cells % 0 %; Platelet Count 246 10^3/cmm (157-399); Red Blood Count 4.73 10^6/uL (3.85-5.65); Red Cell Distribution Width 12.9 % (12.1-15.1); White Blood Count 11.23 10^3/uL (3.29-11.43)
[2023-09-15 11:49] LABS: Alanine Aminotransferase 30 U/L (0-33); Albumin Level 4.5 g/dL (3.5-5.2); Alkaline Phosphatase 97 U/L (35-105); Aspartate Amino Transferase 18 U/L (0-32); Blood Urea Nitrogen 9 mg/dL (8-23); Calcium 9.3 mg/dL (8.5-10.5); Carbon Dioxide 24 mmol/L (22-29); Chloride 96 mmol/L (98-107); Globulin 2.4 g/dL (1.3-4.6); Glomerular Filtration Rate 100.6 mL/min (90-130); Glucose 178 mg/dL (65-115); Lipase 15 U/L (13-60); Osmolality Calculated 275 mOsm/kg (285-295); Sodium 131 mmol/L (136-145); Total Bilirubin 1.1 mg/dL (0.15-1.2); Total Protein 6.9 g/dL (6.6-8.7)
--- NOTE | 2023-09-15 12:00 | ED_ITS ---
HPI - Abdominal Pain 2 General: Chief Complaint: Abdominal Pain Stated Complaint: abd pain Time Seen by Provider: 09/15/23 11:20 Source: patient Mode of arrival: ambulatory History of Present Illness: 62-year-old female who presents to the e mergency room with complaints of epigastric right upper quadrant abdominal pain she has been seen previously workup was unremarkable suspect that she had biliary colic. She was seen by surgery at the felt that she was more likely reflux or dyspepsia treated with Reglan and Carafate. She began having severe abdominal pain radiating to her right side into her back that began overnight after she had eaten a large amount of fatty foods at a [employer] gathering. She denies any hematemesis or coffee- ground emesis. Has felt very nauseous has had some loose stools no acholic stools. MD elicited complaint: abdominal pain Onset (ago): hour(s) Location: Epigastric and RUQ Quality: cramping Exacerbating factors: nothing Relieving factors: nothing Associated Symptoms: Reports bloating, GI cramping, nausea and vomiting; Denies anorexia, belching, change in bowel habits, change in stool character, chills, coffee ground emesis, constipation, diarrhea, dyspepsia, dysuria, excessive flatus, fever(s), heartburn, hematochezia, hematuria, hematemesis, fecal incontinence, loose stools, melena, poor appetite and syncope Review of Systems 2 Const: Denies: fever(s) or chills Card: Denies: chest pain or syncope Resp: Denies: dyspnea GI: Reports: abdominal pain, nausea, vomiting, bloating and GI cramping; Denies: hematemesis, coffee ground emesis, heartburn, diarrhea, constipation, belching, excessive flatus, fecal incontinence, change in bowel habits, change in stool character, hematochezia or melena : Denies: dysuria, urinary frequency, urinary urgency or hematuria Musc: Denies: neck pain or back pain Skin/Breast: Denies: rash PFSH ED 2 PFSH: Medical History History of mononucleosis Month of December 2020 Hypertension No pertinent past medical history Denies: diabetes, seizures, DVT/PE, asthma. PCP: Dr. Saldivar Surgical History S/P tubal ligation Performed at time of her third S/P dilation and curettage Done for miscarriage S/P wisdom tooth extraction S/P section x 3 Family History Father Heart disease Stroke Hypertension Mother Thyroid disease Polycythemia vera at age 90 Family/Other Breast cancer paternal aunt, diagnosed in her 70s. 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 [employer] Do you think of yourself as: Straight/Heterosexual Physical Exam 2 Const: COMMON NORMALS: no acute distress GENERAL APPEARANCE: cooperative and comfortable ORIENTATION/CONSCIOUSNESS: Yes awake, Yes oriented to person, Yes oriented to place and Yes oriented to time HENMT: COMMON NORMALS: normocephalic, atraumatic and hearing grossly normal bilaterally HEAD & SCALP: normocephalic and atraumatic Resp: COMMON NORMALS: normal respiratory effort, No retractions, No use of accessory muscles and clear to auscultation bilaterally AUSCULTATION: clear to auscultation bilaterally Cardio: COMMON NORMALS: regular rate, regular rhythm and No murmurs present (Cardio) RATE: regular rate RHYTHM: regular rhythm GI: COMMON NORMALS: Soft to palpation and No hepatosplenomegaly present A USCULTATION: Yes normoactive bowel sounds PALPATION: Yes Soft to palpation, No Tenderness to palpation present (GI), No Guarding due to palpation present (GI) and Yes No hepatosplenomegaly present Extremity: COMMON NORMALS: normal to inspection, capillary refill normal, no clubbing, cyanosis or edema, no calf tenderness and no pedal edema Neuro: SENSORIUM/ORIENTATION: Yes oriented to person, Yes oriented to place and Yes oriented to time Skin: COMMON NORMALS: no rashes or lesions noted GENERAL SKIN EXAM: no rashes or lesions noted Course 2 Vital Signs: Vital signs: Vital Signs Temperature 99.4 F 09/15/23 11:10 Pulse Rate 80 09/15/23 14:10 Respiratory Rate 18 09/15/23 14:10 Blood Pressure 133/65 09/15/23 14:10 Pulse Oximetry 96 09/15/23 14:10 Oxygen Delivery Me thod Room Air 09/15/23 11:44 MDM - Abdominal Pain Medical Decision Making Symptoms improved after fluids and IV pain medications with antinausea medications as well. Will discharge patient home set up for an outpatient HIDA scan follow-up with primary care discussed dietary restrictions to prevent recurrence of symptoms Differential Diagnosis Likely abdominal pain, acute appendicitis, calculus of kidney, constipation, gastroenteritis, pancreatitis and small bowel obstruction Medical Records I reviewed the patient's medical records. Lab Data I reviewed the patient's lab results. 09/15/23 11:25 09/15/23 11:25 Labs/Radiology: Laboratory Results WBC 11.23 10^3/uL (3.29-11.43) 09/15/23 11:25 RBC 4.73 10^6/uL (3.85-5.65) 09/15/23 11:25 Hgb 13.40 g/dL (11.27-16.99) 09/15/23 11:25 Hct 39.5 % (36-47) 09/15/23 11:25 MCV 83.5 fl (85-98) L 09/15/23 11:25 MCH 28.3 pg (27-33) 09/15/23 11:25 MCHC 33.9 g/dL (30-55) 09/15/23 11:25 RDW 12.9 % (12.1-15.1) 09/15/23 11:25 Plt Count 246 10^3/cmm (157-399) 09/15/23 11:25 MPV 9.5 fL (7.4-10.4) 09/15/23 11:25 Neut % (Auto) 89.9 % 09/15/23 11:25 Lymph % (Auto) 5.8 % 09/15/23 11:25 [place] % (Auto) 3.6 % 09/15/23 11:25 Eos % (Auto) 0.1 % 09/15/23 11:25 Baso % (Auto) 0.1 % 09/15/23 11:25 Neut # (Auto) 10.10 10^3/uL (1.8-7.7) H 09/15/23 11:25 Lymph # (Auto) 0.7 10^3/uL (0.8-4.8) L 09/15/23 11:25 [place] # (Auto) 0.4 10^3/uL (0.2-0.9) 09/15/23 11:25 Eos # (Auto) 0.0 10^3/uL (0.0-0.8) 09/15/23 11:25 Baso # (Auto) 0.0 10^3/uL (0.0-0.1) 09/15/23 11:25 Nucleated RBC % (auto) 0 % 09/15/23 11:25 Nucleated RBCs # 0.0 /100WBC 09/15/23 11:25 Sodium 131 mmol/L (136-145) L 09/15/23 11:25 Potassium 4.0 mmol/L (3.5-5.1) 09/15/23 11:25 Chloride 96 mmol/L (98-107) L 09/15/23 11:25 Carbon Dioxide 24 mmol/L (22-29) 09/15/23 11:25 Anion Gap 15.0 (5-19) 09/15/23 11:25 BUN 9 mg/dL (8-23) 09/15/23 11:25 Creatinine 0.6 mg/dL (0.5-0.9) 09/15/23 11:25 GFR Calculation 100.6 mL/min (90-130) 09/15/23 11:25 Glucose 178 mg/dL (65-115) H 09/15/23 11:25 Calculated Osmolality 275 mOsm/kg (285-295) L 09/15/23 11:25 Calcium 9.3 mg/dL (8.5-10.5) 09/15/23 11:25 Total Bilirubin 1.1 mg/dL (0.15-1.2) 09/15/23 11:25 AST 18 U/L (0-32) 09/15/23 11:25 ALT 30 U/L (0-33) 09/15/23 11:25 Alkaline Phosphatase 97 U/L (35-105) 09/15/23 11:25 Total Protein 6.9 g/dL (6.6-8.7) 09/15/23 11:25 Albumin 4.5 g/dL (3.5-5.2) 09/15/23 11:25 Globulin 2.4 g/dL (1.3-4.6) 09/15/23 11:25 Lipase 15 U/L (13-60) 09/15/23 11:25 Urine Color Yellow (Yellow) 09/15/23 13:40 Urine Appearance Clear (CLEAR) 09/15/23 13:40 Urine pH 6 (5-7) 09/15/23 13:40 Ur Specific [place] 1.010 (1.005-1.030) 09/15/23 13:40 Urine Protein Trace (Negative) 09/15/23 13:40 Urine Glucose (UA) 2+ (Normal) H 09/15/23 13:40 Urine Ketones 1+ (Negative) H 09/15/23 13:40 Urine Blood 2+ (Negative) H 09/15/23 13:40 Urine Nitrate Negative (Negative) 09/15/23 13:40 Urine Bilirubin Neg (Negative) 09/15/23 13:40 Urine Urobilinogen Norm mg/dL (Negative) 09/15/23 13:40 Ur Leukocyte Esterase Trace (Negative) H 09/15/23 13:40 Urine RBC Rare /hpf (0-2) 09/15/23 13:40 Urine WBC 0-4 /hpf (0-5) H 09/15/23 13:40 Ur Squamous Epith Cells 0-4 /hpf (0-5) H 09/15/23 13:40 Amorphous Sediment Not Reportable 09/15/23 13:40 Urine Bacteria Trace /hpf (NONE) 09/15/23 13:40 Urine Mucus Trace /hpf 09/15/23 13:40 No radiology studies performed this visit Discharge Plan Discharge Patient Disposition: Home Clinical Impression: Biliary colic Condition: Stable Prescriptions: New hydrocodone-acetaminophen 5-325 mg tablet 1 tab PO Q6H PRN (Reason: pain) Qty: 20 0RF promethazine 25 mg tablet 25 mg PO Q6H PRN (Reason: nausea and vomiting) Qty: 20 0RF No Action aspirin 81 mg tablet,delayed release (DR/EC) 81 mg PO DAILY atorvastatin 40 mg tablet 40 mg PO BEDTIME Qty: 90 3RF citalopram 20 mg tablet 20 mg PO DAILY Qty: 90 2RF losartan 50 mg tablet See Rx Instructions .ROUTE .COMPLEX Qty: 90 3RF Dose Instruction: TAKE ONE TABLET BY MOUTH DAILY Rx Instructions: TAKE ONE TABLET BY MOUTH DAILY pantoprazole 40 mg tablet,delayed release (DR/EC) 40 mg PO DAILY Qty: 90 3RF Discharge Orders: Discharge ED (Routine); Ordered 09/15/23 Ordered By: Tesfaye Castro Referrals: Ignacio Saldivar MD [Primary Care Provider] - Discharge Diet: As Directed Discharge Activity: Increase activity as tolerated Patient Instructions: Biliary Colic (ED), Low Fat Diet (ED), Opioid Safety, Pain Management Activity Restrictions/Additional Instructions: Thank you for choosing [facility] for your healthcare needs today. Please realize this is an emergency room and that we are providing you with a medical screening exam and this may not be complete and all inclusive of all the testing and or work up that you may need to determine your ailment or severity of your illness. It is very important that you follow up as instructed or that you return to the Emergency Department should you have concerns or if your condition changes or worsens in any way. You were seen today for abdominal pain. Suspect based on your symptoms most likely from biliary dyskinesia. We will set you up for an outpatient HIDA scan. Discussed with you dietary adjustments to avoid triggering more symptoms. Return if you have further problems or change in symptoms case management will contact you for the outpatient testing Coding Level of Care Code ED Intervention Nurse for Carrie Yadav
[2023-09-15] MEDS: morphine 4 mg/mL SDV 1 mL IVP (12:36)
[2023-09-15] MEDS: morphine 4 mg/mL SDV 1 mL 2 MG IVP (13:32)
[2023-09-15 13:58] LABS: Bilirubin Urine Neg (Negative); Blood Urine 2+ (Negative); Glucose Urine UA 2+ (Normal); Nitrate Urine Negative (Negative); Protein Urine Trace (Negative); Urine Appearance Clear (CLEAR); Urine Color Yellow (Yellow); Urobilinogen Urine Norm (Negative); pH Urine 6 (5-7)
[2023-09-15 13:59] LABS: Add Urine Culture? No; Add Urine Microscopic? YES; Bacteria Urine TRACE /hpf; Ketones Urine 1+ (Negative); Leukocyte Esterase Urine Trace (Negative); Mucus Urine TRACE /hpf; RBC Urine RARE /hpf (0-2); Squamous Epithelial Cell Urine 0-4 /hpf (0-5); WBC Urine 0-4 /hpf (0-5)
--- NOTE | 2023-09-19 07:11 | DCPLANNER ---
Sent Hida request to centralized scheduling
== END 2023-09-15 14:18 | disposition home or self-care (01) ==
PROVIDERS: Emergency Provider Family Medicine; PCP Family Medicine
DX: K80.50 Calculus of bile duct without cholangitis or cholecystitis without obstruction (principal); Z79.82 Long term (current) use of aspirin; I10 Essential (primary) hypertension
CPT/HCPCS: 80053; 81001; 83690; 85025; 93005; 96361; 96374; 96376; 99284; J2270; J7030

== ENCOUNTER 2023-10-10 07:43 | Outpatient (CLI) | payer MEDICARE, OTHER, SELFPAY ==
--- NOTE | 2023-10-10 07:45 | NM_ITS ---
WS: [id number] NUCLEAR MEDICINE HIDA SCAN HISTORY: RUQ PAIN COMPARISON: CT 07/17/2023 TECHNIQUE: The patient was intravenously injected with 7.5 mCi of TC99m Mebrofenin. Immediate imaging over the right upper quadrant was followed by 5 minute image and additional images for a total of 12 0 minutes. Normal uptake of radiotracer throughout the liver. Gallbladder is not identified at the 120 minutes time of imaging. There is a normal appearance of the common bile duct by 15 minutes. Normal excretion from the liver. Without visualization of the gallbladder the gallbladder ejection fraction cannot be obtained. IMPRESSION: 1. Nonvisualization of the gallbladder at 120 minutes. Findings suspicious for cystic duct obstructi on/chronic cholecystitis. Gallbladder is abnormal on the CT of 07/17/2023 containing stones and mild e nlargement. Please note the patient is not experiencing pain at this time. 2. Normal common bile duct. 3. Normal hepatic excretion.
== END 2023-10-10 07:44 | disposition home or self-care (01) ==
PROVIDERS: PCP Family Medicine; Visit Provider Family Medicine
DX: K80.50 Calculus of bile duct without cholangitis or cholecystitis without obstruction (principal); K80.20 Calculus of gallbladder without cholecystitis without obstruction
CPT/HCPCS: 78227; A9537

== ENCOUNTER → 2023-10-16 14:42 | Outpatient (BNVA) | payer MEDICARE, OTHER, SELFPAY | PROVIDERS: PCP Family Medicine; Visit Provider Family Medicine | DX: Z01.810 Encounter for preprocedural cardiovascular examination (principal); K80.10 Calculus of gallbladder with chronic cholecystitis without obstruction; Z51.81 Encounter for therapeutic drug level monitoring | CPT/HCPCS: 80053; 85025; 86141 ==

== ENCOUNTER → 2023-10-21 10:59 | Outpatient (BNVA) | payer MEDICARE, OTHER, SELFPAY | PROVIDERS: PCP Family Medicine; Visit Provider Surgery | DX: K81.1 Chronic cholecystitis | CPT/HCPCS: 99213 ==

== ENCOUNTER 2023-10-25 13:22 | Observation (INO) | payer MEDICARE, OTHER, SELFPAY ==
[2023-10-25] VITALS (8 sets, daily range): BP systolic 102–164; BP diastolic 64–91; PULSE 77–88; RESP 14–22; TEMP 36.6–36.9; O2SAT 91–100; BMI 26.1
--- NOTE | 2023-10-25 13:35 | ED_ITS ---
Documented by User: YESSENIA Cedillo 10/25/23 16:05 HPI - Abdominal Pain 2 General: Chief Complaint: Abdominal Pain Stated Complaint: abd pain Time Seen by Provider: 10/25/23 13:35 Source: patient and family Mode of arrival: ambulatory Limitations: no limitations History of Present Illness: Patient is a nice 63-year-old female presents to ED today along with her for evaluation of severe abdominal pain. Patient states she began having similar abdominal pains back in July when she was seen here in the emergency department. During that visit she was consulted on by Dr. Dai. Since then she has followed up with him in office multiple times. She has followed up with her primary care provider. She has had a return visit to the emergency department. Patient has been diagnosed with biliary colic/cholelithiasis/chronic cholecystitis. She has had a HIDA scan. She is reportedly scheduled to have an elective cholecystectomy at the end of the month but states she woke up this morning in excruciating pain. Patient states she is having severe nausea with bilious vomit and dry heaving. No fevers. No yellowing to her skin or eyes. No dark-colored urine or light-colored stools. MD elicited complaint: abdominal pain Pertinent past history: other (has been told biliary colic/cholelithiasis/chronic cholecystitis) Onset (ago): hour(s) Pain Consistency: constant Location: Epigastric and RUQ Severity: severe Quality: sharp Radiation: back Migration to: no migration Exacerbating factors: eating Relieving factors: nothing Associated Symptoms: Reports nausea and vomiting; Denies chills, diarrhea, dysuria, fever(s), heartburn, hematochezia, hematemesis, melena and syncope Related Data: Patient : No Review of Systems 2 Const: Denies: fever(s), chills, body aches, fatigue or malaise Eyes: Denies: change in vision or blurry vision Card: Denies: chest pain, palpitations, irregular heart rhythm, lightheadedness, syncope or dyspnea on exertion Resp: Denies: dyspnea, productive cough or pain on inspiration GI: Reports: abdominal pain, nausea and vomiting; Denies: hematemesis, heartburn, diarrhea, hematochezia, melena or white/light colored stool : Denies: flank pain or dysuria Musc: Reports: back pain; Denies: neck pain, extremity pain, extremity swelling or joint pain Skin/Breast: Denies: rash Neuro: Denies: headache(s), numbness in extremities, weakness in extremities, sensory changes or dizziness PFSH ED 2 PFSH: Medical History History of mononucleosis Month of December 2020 Hypertension No pertinent past medical history Denies: diabetes, seizures, DVT/PE, asthma. PCP: Dr. Saldivar Surgical History S/P tubal ligation Performed at time of her third S/P dilation and curettage Done for miscarriage S/P wisdom tooth extraction S/P section x 3 Family History Father Heart disease Stroke Hypertension Mother Thyroid disease Polycythemia vera at age 90 Family/Other Breast cancer paternal aunt, diagnosed in her 70s. 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 [employer] Do you think of yourself as: Straight/Heterosexual Physical Exam 2 Const: COMMON NORMALS: average body habitus, patient oriented x3, no limitations, healthy appearing, alert and well nourished GENERAL APPEARANCE: cooperative and in distress (pt acutely miserable with pain/nausea during initial assessment ) ORIENTATION/CONSCIOUSNESS: Yes awake, Yes oriented to person, Yes oriented to place and Yes oriented to time Eye: COMMON NORMALS: no scleral icterus Neck/C-Spine: COMMON NORMALS: no lymphadenopathy GENERAL: Yes normal visual inspection Resp: COMMON NORMALS: normal respiratory effort and clear to auscultation bilaterally AUSCULTATION: clear to auscultation bilaterally Cardio: COMMON NORMALS: regular rate and regular rhythm RATE: regular rate RHYTHM: regular rhythm GI: COMMON NORMALS: Soft to palpation, No hepatosplenomegaly present and no masses INSPECTION: Yes normal to inspection AUSCULTATION: Yes normoactive bowel sounds PALPATION: Yes Soft to palpation, Yes Tenderness to palpation present (GI) (epigastric/RUQ) Details: RLQ, No Rigid due to palpation and Yes No hepatosplenomegaly present : COMMON NORMALS: Yes no CVA tenderness BLADDER/KIDNEY EXAM: Yes no CVA tenderness Back/Pelvis: COMMON NORMALS: no CVA tenderness and thoracic and lumbar spine normal to inspection Extremity: GENERAL: Yes normal exam except as noted Neuro: COMMON NORMALS: patient oriented x3, moves all extremities, no focal motor deficits and no sensory deficits noted SENSORIUM/ORIENTATION: Yes alert, Yes oriented to person, Yes oriented to place and Yes oriented to time Skin: COMMON NORMALS: no rashes or lesions noted GENERAL SKIN EXAM: no rashes or lesions noted Course 2 Consultations: Consultation #1: Dr. Dai-will come evaluate patient here in the emergency department following his evaluation he will admit patient for a cholecystectomy tomorrow Vital Signs: Vital signs: Vital Signs Temperature 97.8 F 10/25/23 13:27 Pulse Rate 88 10/25/23 15:35 Respiratory Rate 18 10/25/23 17:33 Blood Pressure 164/91 10/25/23 15:35 Pulse Oximetry 96 10/25/23 17:33 Oxygen Delivery Me thod Room Air 10/25/23 13:27 MDM - Abdominal Pain Medical Decision Making Patient is a very nice 63-year-old female here for severe pain and nausea related to biliary colic. She has had the symptoms starting around July. She has had multiple ER visits, general surgery visits, as well as primary care visits for the symptoms. She has had a HIDA scan showing chronic cholecystitis. She has known cholelithiasis. She has an elective cholecystectomy scheduled for several weeks however patient states her pain today has become so severe that she does not believe she can wait any longer. Upon arrival she is acutely miserable. I have given her multiple doses of pain and nausea medications and she remains uncomfortable and nauseous with dry heaving. Her blood work today is fairly unremarkable. White count of 12.9. Her LFTs are fairly normal/unchanged. She has a normal tbili and normal lipase. Ultrasound and CT imaging showing cholelithiasis without evidence of acute cholecystitis. I have spoken to Dr. Dai who is graciously willing to evaluate patient here in the emergency department. He will admit patient for cholecystectomy tomorrow. I spoke with Dr. Castro who will place admit orders. Medical Records I reviewed the patient's medical records. Lab Data I reviewed the patient's lab results. 10/25/23 13:51 10/25/23 13:51 Labs/Radiology: Radiology Impressions Gallbladder Ultrasound 10/25/23 13:43 IMPRESSION: Cholelithiasis without evidence of acute cholecystitis. Abdomen/Pelvis CT 10/25/23 14:34 IMPRESSION: No acute abdominal findings. Cholelithiasis without evidence of acute cholecystitis. Laboratory Results WBC 12.92 10^3/uL (3.29-11.43) H 10/25/23 13:51 RBC 4.88 10^6/uL (3.85-5.65) 10/25/23 13:51 Hgb 14.10 g/dL (11.27-16.99) 10/25/23 13:51 Hct 41.5 % (36-47) 10/25/23 13:51 MCV 85.0 fl (85-98) 10/25/23 13:51 MCH 28.9 pg (27-33) 10/25/23 13:51 MCHC 34.0 g/dL (30-55) 10/25/23 13:51 RDW 13.2 % (12.1-15.1) 10/25/23 13:51 Plt Count 278 10^3/cmm (157-399) 10/25/23 13:51 MPV 9.7 fL (7.4-10.4) 10/25/23 13:51 Neut % (Auto) 92.4 % 10/25/23 13:51 Lymph % (Auto) 4.3 % 10/25/23 13:51 Armstrong % (Auto) 2.8 % 10/25/23 13:51 Eos % (Auto) 0.0 % 10/25/23 13:51 Baso % (Auto) 0.2 % 10/25/23 13:51 Neut # (Auto) 11.94 10^3/uL (1.8-7.7) H 10/25/23 13:51 Lymph # (Auto) 0.6 10^3/uL (0.8-4.8) L 10/25/23 13:51 Armstrong # (Auto) 0.4 10^3/uL (0.2-0.9) 10/25/23 13:51 Eos # (Auto) 0.0 10^3/uL (0.0-0.8) 10/25/23 13:51 Baso # (Auto) 0.0 10^3/uL (0.0-0.1) 10/25/23 13:51 Nucleated RBC % (auto) 0 % 10/25/23 13:51 Nucleated RBCs # 0.0 /100WBC 10/25/23 13:51 Sodium 142 mmol/L (136-145) 10/25/23 13:51 Potassium 4.1 mmol/L (3.5-5.1) 10/25/23 13:51 Chloride 104 mmol/L (98-107) 10/25/23 13:51 Carbon Dioxide 22 mmol/L (22-29) 10/25/23 13:51 Anion Gap 20.1 (5-19) H 10/25/23 13:51 BUN 15 mg/dL (8-23) 10/25/23 13:51 Creatinine 0.8 mg/dL (0.5-0.9) 10/25/23 13:51 GFR Calculation 72.0 mL/min (90-130) L 10/25/23 13:51 Glucose 214 mg/dL (65-115) H 10/25/23 13:51 Calculated Osmolality 301 mOsm/kg (285-295) H 10/25/23 13:51 Calcium 9.6 mg/dL (8.5-10.5) 10/25/23 13:51 Total Bilirubin 0.9 mg/dL (0.15-1.2) 10/25/23 13:51 AST 20 U/L (0-32) 10/25/23 13:51 ALT 42 U/L (0-33) H 10/25/23 13:51 Alkaline Phosphatase 107 U/L (35-105) H 10/25/23 13:51 Total Protein 7.4 g/dL (6.6-8.7) 10/25/23 13:51 Albumin 4.7 g/dL (3.5-5.2) 10/25/23 13:51 Globulin 2.7 g/dL (1.3-4.6) 10/25/23 13:51 Lipase 19 U/L (13-60) 10/25/23 13:51 Urine Color Yellow (Yellow) 10/25/23 14:48 Urine Appearance Clear (CLEAR) 10/25/23 14:48 Urine pH 7 (5-7) 10/25/23 14:48 Ur Specific [place]ap[place] 1.010 (1.005-1.030) 10/25/23 14:48 Urine Protein Neg (Negative) 10/25/23 14:48 Urine Glucose (UA) 2+ (Normal) H 10/25/23 14:48 Urine Ketones 2+ (Negative) H 10/25/23 14:48 Urine Blood 2+ (Negative) H 10/25/23 14:48 Urine Nitrate Negative (Negative) 10/25/23 14:48 Urine Bilirubin Neg (Negative) 10/25/23 14:48 Urine Urobilinogen Norm mg/dL (Negative) 10/25/23 14:48 Ur Leukocyte Esterase Negative (Negative) 10/25/23 14:48 Urine RBC 0-4 /hpf (0-2) H 10/25/23 14:48 Urine WBC None /hpf (0-5) 10/25/23 14:48 Ur Squamous Epith Cells Rare /hpf (0-5) 10/25/23 14:48 Amorphous Sediment Not Reportable 10/25/23 14:48 Urine Bacteria Trace /hpf (NONE) 10/25/23 14:48 All radiology interpretation(s) finalized by discharge Discharge Plan Discharge Patient Disposition: Admitted As Inpatient Admit Provider: Weston Dai Clinical Impression: Symptomatic cholelithiasis Condition: Stable Coding Level of Care Code ED Dope Dry House Operator for Chg Fwd Documented by User: Tesfaye Castro DO 10/25/23 17:46 HPI - Abdominal Pain 2 General: Chief Complaint: Abdominal Pain Stated Complaint: abd pain Time Seen by Provider: 10/25/23 13:35 PFSH ED 2 PFSH: Medical History History of mononucleosis Month of December 2020 Hypertension No pertinent past medical history Denies: diabetes, seizures, DVT/PE, asthma. PCP: Dr. Saldivar Surgical History S/P tubal ligation Performed at time of her third S/P dilation and curettage Done for miscarriage S/P wisdom tooth extraction S/P section x 3 Family History Father Heart disease Stroke Hypertension Mother Thyroid disease Polycythemia vera at age 90 Family/Other Breast cancer paternal aunt, diagnosed in her 70s. 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 She has had the symptoms starting around July. She has had multiple ER visits, general surgery visits, as well as primary care visits for the symptoms. She has had a HIDA scan showing chronic cholecystitis. She has known cholelithiasis. She has an elective cholecystectomy scheduled for several weeks however patient states her pain today has become so severe that she does not believe she can wait any longer. Upon arrival she is acutely miserable. I have given her multiple doses of pain and nausea medications and she remains uncomfortable and nauseous with dry heaving. Her blood work today is fairly unremarkable. White count of 12.9. Her LFTs are fairly normal/unchanged. She has a normal tbili and normal lipase. Ultrasound and CT imaging showing cholelithiasis without evidence of acute cholecystitis. I have spoken to Dr. Dai who is graciously willing to evaluate patient here in the emergency deChart reviewed and patient discussed with midlevel. Agree with assessment and plan.Eartment. He will admit patient for cholecystectomy tomorrow. I spoke with Dr. Castro who will place admit orders. Chart reviewed and patient discussed with midlevel. Agree with assessment and plan. Lab Data 10/25/23 13:51 10/25/23 13:51 Labs/Radiology: Radiology Impressions Gallbladder Ultrasound 10/25/23 13:43 IMPRESSION: Cholelithiasis without evidence of acute cholecystitis. Abdomen/Pelvis CT 10/25/23 14:34 IMPRESSION: No acute abdominal findings. Cholelithiasis without evidence of acute cholecystitis. Laboratory Results WBC 12.92 10^3/uL (3.29-11.43) H 10/25/23 13:51 RBC 4.88 10^6/uL (3.85-5.65) 10/25/23 13:51 Hgb 14.10 g/dL (11.27-16.99) 10/25/23 13:51 Hct 41.5 % (36-47) 10/25/23 13:51 MCV 85.0 fl (85-98) 10/25/23 13:51 MCH 28.9 pg (27-33) 10/25/23 13:51 MCHC 34.0 g/dL (30-55) 10/25/23 13:51 RDW 13.2 % (12.1-15.1) 10/25/23 13:51 Plt Count 278 10^3/cmm (157-399) 10/25/23 13:51 MPV 9.7 fL (7.4-10.4) 10/25/23 13:51 Neut % (Auto) 92.4 % 10/25/23 13:51 Lymph % (Auto) 4.3 % 10/25/23 13:51 Armstrong % (Auto) 2.8 % 10/25/23 13:51 Eos % (Auto) 0.0 % 10/25/23 13:51 Baso % (Auto) 0.2 % 10/25/23 13:51 Neut # (Auto) 11.94 10^3/uL (1.8-7.7) H 10/25/23 13:51 Lymph # (Auto) 0.6 10^3/uL (0.8-4.8) L 10/25/23 13:51 Armstrong # (Auto) 0.4 10^3/uL (0.2-0.9) 10/25/23 13:51 Eos # (Auto) 0.0 10^3/uL (0.0-0.8) 10/25/23 13:51 Baso # (Auto) 0.0 10^3/uL (0.0-0.1) 10/25/23 13:51 Nucleated RBC % (auto) 0 % 10/25/23 13:51 Nucleated RBCs # 0.0 /100WBC 10/25/23 13:51 Sodium 142 mmol/L (136-145) 10/25/23 13:51 Potassium 4.1 mmol/L (3.5-5.1) 10/25/23 13:51 Chloride 104 mmol/L (98-107) 10/25/23 13:51 Carbon Dioxide 22 mmol/L (22-29) 10/25/23 13:51 Anion Gap 20.1 (5-19) H 10/25/23 13:51 BUN 15 mg/dL (8-23) 10/25/23 13:51 Creatinine 0.8 mg/dL (0.5-0.9) 10/25/23 13:51 GFR Calculation 72.0 mL/min (90-130) L 10/25/23 13:51 Glucose 214 mg/dL (65-115) H 10/25/23 13:51 Calculated Osmolality 301 mOsm/kg (285-295) H 10/25/23 13:51 Calcium 9.6 mg/dL (8.5-10.5) 10/25/23 13:51 Total Bilirubin 0.9 mg/dL (0.15-1.2) 10/25/23 13:51 AST 20 U/L (0-32) 10/25/23 13:51 ALT 42 U/L (0-33) H 10/25/23 13:51 Alkaline Phosphatase 107 U/L (35-105) H 10/25/23 13:51 Total Protein 7.4 g/dL (6.6-8.7) 10/25/23 13:51 Albumin 4.7 g/dL (3.5-5.2) 10/25/23 13:51 Globulin 2.7 g/dL (1.3-4.6) 10/25/23 13:51 Lipase 19 U/L (13-60) 10/25/23 13:51 Urine Color Yellow (Yellow) 10/25/23 14:48 Urine Appearance Clear (CLEAR) 10/25/23 14:48 Urine pH 7 (5-7) 10/25/23 14:48 Ur Specific [place] 1.010 (1.005-1.030) 10/25/23 14:48 Urine Protein Neg (Negative) 10/25/23 14:48 Urine Glucose (UA) 2+ (Normal) H 10/25/23 14:48 Urine Ketones 2+ (Negative) H 10/25/23 14:48 Urine Blood 2+ (Negative) H 10/25/23 14:48 Urine Nitrate Negative (Negative) 10/25/23 14:48 Urine Bilirubin Neg (Negative) 10/25/23 14:48 Urine Urobilinogen Norm mg/dL (Negative) 10/25/23 14:48 Ur Leukocyte Esterase Negative (Negative) 10/25/23 14:48 Urine RBC 0-4 /hpf (0-2) H 10/25/23 14:48 Urine WBC None /hpf (0-5) 10/25/23 14:48 Ur Squamous Epith Cells Rare /hpf (0-5) 10/25/23 14:48 Amorphous Sediment Not Reportable 10/25/23 14:48 Urine Bacteria Trace /hpf (NONE) 10/25/23 14:48 Discharge Plan Discharge Patient Disposition: Admitted As Inpatient Admit Provider: Weston Dai Clinical Impression: Symptomatic cholelithiasis Condition: Stable Coding Level of Care Code ED Dope Dry House Operator for Chg Leif
--- NOTE | 2023-10-25 13:43 | USR_ITS ---
PROCEDURE INFORMATION: Exam: US Abdomen, Limited; Right Upper Quadrant Exam date and time: 10/25/2023 2:10 PM Age: 63 years old Clinical indication: Abdominal pain; Acute; Additional info: Ruq pain; Known cholelithiasis/chronic cholecystitis TECHNIQUE: Imaging protocol: Real time ultrasound of the abdomen with image documentation. Limited exam focused on the right upper quadrant. COMPARISON: US gall bladder [id number] 07/17/2023 2:03 PM FINDINGS: Liver: No acute findings. Gallbladder: Cholelithiasis without evidence of acute cholecystitis. Sonographic Alvarez's sign was not provided at time of interpretation. Biliary ducts: No dilation. Pancreas: Obscured by overlying bowel gas. Right kidney: No hydronephrosis. US/US gall bladder [id number] IMPRESSION: Cholelithiasis without evidence of acute cholecystitis.
[2023-10-25] MEDS: sodium chloride 0.9% 1,000 ML 999 ML IV (13:53)
[2023-10-25] MEDS: ondansetron 2 mg/ML SDV 2 mL 4 MG IVP (13:54)
[2023-10-25] MEDS: morphine 4 mg/mL SDV 1 mL IVP ×2 (13:55→17:33)
[2023-10-25 14:04] LABS: Basophils % 0.2 %; Hematocrit 41.5 % (36-47); Lymphocytes # 0.6 10^3/uL (0.8-4.8); Lymphocytes % 4.3 %; Mean Corpuscular Hemoglobin 28.9 pg (27-33); Mean Platelet Volume 9.7 fL (7.4-10.4); Monocytes # 0.4 10^3/uL (0.2-0.9); Monocytes % 2.8 %; Neutrophils # 11.94 10^3/uL (1.8-7.7); Neutrophils % 92.4 %; Nucleated Red Blood Cells % 0 %; Platelet Count 278 10^3/cmm (157-399); Red Blood Count 4.88 10^6/uL (3.85-5.65); Red Cell Distribution Width 13.2 % (12.1-15.1); White Blood Count 12.92 10^3/uL (3.29-11.43)
[2023-10-25] MEDS: HYDROmorphone 1 mg/mL INJ 1 mL 0.5 MG IVP (14:15)
[2023-10-25 14:26] LABS: Alanine Aminotransferase 42 U/L (0-33); Albumin Level 4.7 g/dL (3.5-5.2); Alkaline Phosphatase 107 U/L (35-105); Anion Gap 20.1 (5-19); Aspartate Amino Transferase 20 U/L (0-32); Blood Urea Nitrogen 15 mg/dL (8-23); Calcium 9.6 mg/dL (8.5-10.5); Carbon Dioxide 22 mmol/L (22-29); Chloride 104 mmol/L (98-107); Globulin 2.7 g/dL (1.3-4.6); Glucose 214 mg/dL (65-115); Lipase 19 U/L (13-60); Osmolality Calculated 301 mOsm/kg (285-295); Potassium 4.1 mmol/L (3.5-5.1); Sodium 142 mmol/L (136-145); Total Bilirubin 0.9 mg/dL (0.15-1.2); Total Protein 7.4 g/dL (6.6-8.7)
--- NOTE | 2023-10-25 14:34 | CTR_ITS ---
PROCEDURE INFORMATION: Exam: CT Abdomen And Pelvis With Contrast Exam date and time: 10/25/2023 2:53 PM Age: 63 years old Clinical indication: Nausea and vomiting; Abdominal pain; Epigastric; Additional info: Severe abdominal pain, n/v, HX of cholelithiasis/chronic cholecystitis; Normal TECHNIQUE: Imaging protocol: Computed tomography of the abdomen and pelvis with contrast. Radiation optimization: All CT scans at this facility use at least one of these dose optimization techniques: automated exposure control; mA and/or kV adjustment per patient size (includes targeted exams where dose is matched to clinical indication); or iterative reconstruction. Contrast material: OMNI 350; Contrast volume: 100 ml; Contrast route: INTRAVENOUS (IV); COMPARISON: CT abdomen pelvis w con* [id number] 07/17/2023 4:01 PM RADIATION DOSE METRICS: Total DLP (mGy-cm): 593.45 FINDINGS: Liver: No acute findings Gallbladder and bile ducts: Cholelithiasis and/or gallbladder sludge. No evidence of acute cholecystitis. Pancreas: No ductal dilation. Spleen: No splenomegaly. Adrenal glands: No mass. Kidneys and ureters: No stones or hydronephrosis. Stomach and bowel: No obstruction. Appendix: No evidence of appendicitis. Intraperitoneal space: No free air. No significant fluid collection. Vasculature: No abdominal aortic aneurysm. 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 Lymph nodes: No enlarged lymph nodes. Urinary bladder: Incompletely distended. Reproductive: No acute findings. Bones/joints: No acute findings. Soft tissues: No acute findings. CT/CT abdomen pelvis w con* [id number] IMPRESSION: No acute abdominal findings. Cholelithiasis without evidence of acute cholecystitis.
[2023-10-25] MEDS: iohexol 350 mg/mL 500 mL Btl (per mL) IV (14:57)
[2023-10-25 15:12] LABS: Urine Appearance Clear (CLEAR); Urine Color Yellow (Yellow); pH Urine 7 (5-7)
[2023-10-25 15:13] LABS: Add Urine Culture? No; Add Urine Microscopic? YES; Bacteria Urine TRACE /hpf; Bilirubin Urine Neg (Negative); Blood Urine 2+ (Negative); Glucose Urine UA 2+ (Normal); Ketones Urine 2+ (Negative); Leukocyte Esterase Urine Negative (Negative); Nitrate Urine Negative (Negative); Protein Urine Neg (Negative); RBC Urine 0-4 /hpf (0-2); Squamous Epithelial Cell Urine RARE /hpf (0-5); Urobilinogen Urine Norm (Negative)
[2023-10-25] MEDS: metoclopramide 5 mg/mL SDV 2 mL 10 MG IVP (15:17)
--- NOTE | 2023-10-25 16:06 | P.HP_ITS ---
Providers/Chief Complaint 2 Admitting Physician: Weston Dai MD Primary Care Provider: Ignacio Saldivar MD Chief Complaint: abd pain History of Present Illness Sharyn Vargas is a 63 year old female who presents to the emergency department complaining of abdominal pain radiating to the upper abdomen and chest, severe nausea vomit and indigestion. Patient has history of biliary colic, recent HIDA scan show evidence of lack of appetite in the gallbladder concerning for the possibility of chronic cholecystitis. I had the patient in the schedule for laparoscopic cholecystectomy at the end of the month. But due to recurrent symptoms the patient decided to present to the ED. CT abdomen and ultrasound of the abdomen were repeated and show evidence of cholelithiasis with no significant evidence of gallbladder wall thickening indicating cholecystitis. Review of Systems 2 General: Reports: 10 or more systems reviewed and unremarkable except in HPI and below Medications/Allergies Home Medications Medication Instructions Recorded Confirmed Last Taken Type atorvastatin 40 mg tablet 40 mg PO BEDTIME #90 tabs 12/30/22 10/25/23 10/24/23 Rx aspirin 81 mg tablet,delayed 81 mg PO DAILY 01/23/23 10/25/23 10/24/23 History release citalopram 20 mg tablet 20 mg PO DAILY #90 tabs 06/09/23 10/25/23 10/24/23 Rx hydrocodone 5 mg-acetaminophen 325 1 tab PO Q6H PRN pain #20 tabs 09/15/23 10/25/23 Unknown Rx mg tablet promethazine 25 mg tablet 25 mg PO Q6H PRN nausea and 09/15/23 10/25/23 10/25/23 Rx vomiting #20 tabs losartan 50 mg tablet 50 mg PO DAILY 10/25/23 10/25/23 10/24/23 History pantoprazole 40 mg tablet,delayed 40 mg PO QPM 10/25/23 10/25/23 10/24/23 History release sucralfate 100 mg/mL oral 10 ml PO BID 10/25/23 10/25/23 10/25/23 History suspension Allergies Allergy/AdvReac Type Severity Reaction Status Date / Time amoxicillin Allergy Unknown Verified 10/25/23 13:33 doxycycline Allergy rash Verified 10/25/23 13:33 demeclocycline AdvReac Sun Verified 10/25/23 13:33 [From Declomycin] sensitivity and stomach ache lisinopril AdvReac dizziness Verified 10/25/23 13:33 PFSH Acute 2 PFSH: Medical History History of mononucleosis Month of December 2020 Hypertension No pertinent past medical history Denies: diabetes, seizures, DVT/PE, asthma. PCP: Dr. Saldivar Surgical History S/P tubal ligation Performed at time of her third S/P dilation and curettage Done for miscarriage S/P wisdom tooth extraction S/P section x 3 Family History Father Heart disease Stroke Hypertension Mother Thyroid disease Polycythemia vera at age 90 Family/Other Breast cancer paternal aunt, diagnosed in her 70s. 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 Nose : Mucous membranes are without erythema. Lungs : Equal chest rise bilaterally, no use of accessory muscles, trachea is midline. CV : Rate and rhythm are normal. Abdomen : Soft, ND, mild tenderness on the RUQ, no g/r/m Extremities : No edema. Upper extremities are normal bilaterally. Back : non-tender to palpation, no CVA tenderness. Data 10/25/23 13:51 10/25/23 13:51 A&P Assessment and plan (1) Cholecystitis, chronic: (2) Cholelithiases: (3) Biliary colic: Plan After a complete history, physical examination and review of all available clinical data the following is my assessment. Patient presents with an episode of severe biliary colic. Despite significant interventions in the emergency department patient continues to be nauseous and complaining of significant abdominal pain. Her white count is elevated to 12 and she appears dehydrated. Due to this findings I think it would be necessary to proceed with laparoscopic cholecystectomy as an inpatient opposed to the previous plan of doing it as an elective outpatient procedure. I have discussed all the risk and benefits of the procedure with the patient including the increased risk of biliary injury requiring major surgery due to active acute inflammation. I have also discussed the risks of bleeding, infection, damage to surrounding structures, need for additional surgical interventions, bilioma, biliary ductal injury, vascular injury, conversion to open operation, sepsis and . Patient shows understanding and wishes to proceed. Patient will be admitted overnight for IV hydration and pain control, we will plan to proceed with ostectomy early in the morning tomorrow. Attestations 2 Medical Necessity Statement*: Length of stay will be between 24 and 48 hours for laparoscopic ostectomy and symptomatic management. Coding Level of Care Code 90672 Diagnoses Cholecystitis, chronic K81.1 Cholelithiases K80.20 Biliary colic K80.50
[2023-10-25] MEDS: pantoprazole 40 mg SDV IVP (16:51)
[2023-10-25] MEDS: ketorolac 30 mg/mL INJ 15 MG IVP ×2 (16:53→22:15)
[2023-10-25] MEDS: ciprofloxacin 200 MG/100 ML PREMIX 100 MG IV (16:56)
[2023-10-25] MEDS: metroNIDAZOLE IV 500 MG/100 ML PREMIX 100 MG IV (18:09)
[2023-10-25] MEDS: lactated ringers 1,000 ML 100 ML IV (18:09)
[2023-10-26] VITALS (11 sets, daily range): BP systolic 113–129; BP diastolic 53–79; PULSE 71–87; RESP 14–17; TEMP 36.1–36.8; O2SAT 92–97
[2023-10-26] MEDS: metroNIDAZOLE IV 500 MG/100 ML PREMIX 100 MG IV (00:53)
[2023-10-26 03:15] LABS: Basophils % 0.3 %; Eosinophils % 0.2 %; Hematocrit 35.6 % (36-47); Lymphocytes # 1.8 10^3/uL (0.8-4.8); Lymphocytes % 19.1 %; Mean Corpuscular HGB Conc 32.9 g/dL (30-55); Mean Corpuscular Hemoglobin 28.5 pg (27-33); Mean Corpuscular Volume 86.8 fl (85-98); Mean Platelet Volume 9.8 fL (7.4-10.4); Monocytes % 10.5 %; Neutrophils # 6.53 10^3/uL (1.8-7.7); Neutrophils % 69.7 %; Nucleated Red Blood Cells % 0 %; Platelet Count 203 10^3/cmm (157-399); Red Cell Distribution Width 13.6 % (12.1-15.1); White Blood Count 9.37 10^3/uL (3.29-11.43)
[2023-10-26 03:36] LABS: Alanine Aminotransferase 29 U/L (0-33); Albumin Level 3.6 g/dL (3.5-5.2); Alkaline Phosphatase 82 U/L (35-105); Anion Gap 13.4 (5-19); Aspartate Amino Transferase 12 U/L (0-32); Blood Urea Nitrogen 12 mg/dL (8-23); Calcium 8.4 mg/dL (8.5-10.5); Carbon Dioxide 24 mmol/L (22-29); Chloride 106 mmol/L (98-107); Globulin 2.1 g/dL (1.3-4.6); Glucose 85 mg/dL (65-115); Osmolality Calculated 289 mOsm/kg (285-295); Potassium 3.4 mmol/L (3.5-5.1); Sodium 140 mmol/L (136-145); Total Bilirubin 0.8 mg/dL (0.15-1.2); Total Protein 5.7 g/dL (6.6-8.7)
[2023-10-26] MEDS: pantoprazole 40 mg SDV IVP (04:33)
[2023-10-26] MEDS: ketorolac 30 mg/mL INJ 15 MG IVP ×2 (04:33→11:23)
[2023-10-26] MEDS: ciprofloxacin 200 MG/100 ML PREMIX 100 MG IV (04:40)
[2023-10-26] MEDS: lactated ringers 1,000 ML 100 ML IV (06:35)
--- NOTE | 2023-10-26 06:42 | W.PM.OPSUD ---
Surgery/Procedure H&P Update DATE OF PROCEDURE: October 26, 2023 DATE H&P PERFORMED: 10/25/23 H&P UPDATE INFORMATION: I have reviewed H&P completed within last 30 days, I have examined patient prior to procedure, No changes to prior documentation and H&P is in [facility] [place] on date indicated
--- NOTE | 2023-10-26 07:55 | P.ANESASSM_ITS ---
Pre-Anesthetic Assessment Height/Weight: Height 1.73 m Weight 81.193 kg Temp Pulse Resp BP Pulse Ox O2 Del Method 98.3 F 80 16 129/66 95 Room Air 10/26/23 04:00 10/26/23 07:28 10/26/23 07:28 10/26/23 07:28 10/26/23 07:28 10/26/23 07:28 Operation Date: 10/26/23 08:00 Proposed Procedures p Laparoscopic Cholecystectomy(Not Applicable) - Weston Dai MD Last intake: Intake Last Liquid Date 10/25/23 Last Liquid Time 22:00 Last Solid Date 10/25/23 Social No alcohol and No tobacco Exam alert, oriented x 3, clear to auscultation bilaterally and regular rate & rhythm Airway Submandibular: within normal limits Cervical ROM: within normal limits Pulmonary None reported CV/HEM Hypertension History of ? TIA 1 year ago; negative work up None reported Hepatic None reported GI Gastroesophageal Reflux Disease Metabolic Hyperlipidemia [facility] [place] None reported Neuropsych Anxiety Anesthetic Plan ASA status: 3E Anesthesia: General Medications/Allergies Home Medications Medication Instructions Recorded Confirmed Last Taken Type atorvastatin 40 mg tablet 40 mg PO BEDTIME #90 tabs 12/30/22 10/25/23 10/24/23 Rx aspirin 81 mg tablet,delayed 81 mg PO DAILY 01/23/23 10/25/23 10/24/23 History release citalopram 20 mg tablet 20 mg PO DAILY #90 tabs 06/09/23 10/25/23 10/24/23 Rx hydrocodone 5 mg-acetaminophen 325 1 tab PO Q6H PRN pain #20 tabs 09/15/23 10/25/23 Unknown Rx mg tablet promethazine 25 mg tablet 25 mg PO Q6H PRN nausea and 09/15/23 10/25/23 10/25/23 Rx vomiting #20 tabs losartan 50 mg tablet 50 mg PO DAILY 10/25/23 10/25/23 10/24/23 History pantoprazole 40 mg tablet,delayed 40 mg PO QPM 10/25/23 10/25/23 10/24/23 History release sucralfate 100 mg/mL oral 10 ml PO BID 10/25/23 10/25/23 10/25/23 History suspension Allergies Allergy/AdvReac Type Severity Reaction Status Date / Time amoxicillin Allergy Unknown Verified 10/25/23 13:33 doxycycline Allergy rash Verified 10/25/23 13:33 demeclocycline AdvReac Sun Verified 10/25/23 13:33 [From Declomycin] sensitivity and stomach ache lisinopril AdvReac dizziness Verified 10/25/23 13:33 Current Medications Generic Name Dose Route Start Last Admin Trade Name Freq PRN Reason Stop Dose Admin Lactated Ringer's 1,000 mls @ 100 mls/hr 10/25/23 16:15 10/26/23 06:35 Lactated Ringers IV 100 mls/hr .Q10H WERNER Administration Ciprofloxacin/Dextrose 200 mg in 100 mls @ 100 mls/hr 10/25/23 16:30 10/26/23 05:47 Cipro IV Infused Q12H WERNER Infusion Protocol Metronidazole 500 mg in 100 mls @ 100 mls/hr 10/25/23 17:30 10/26/23 02:02 Flagyl Iv IV Infused Q8H WERNER Infusion Protocol Ketorolac Tromethamine 15 mg 10/25/23 16:30 10/26/23 04:33 Ketorolac 30 Mg/Ml Inj IVP 10/30/23 16:29 15 mg Q6H WERNER Administration Pantoprazole Sodium 40 mg 10/25/23 16:30 10/26/23 04:33 Pantoprazole 40 Mg Sdv IVP 40 mg Q12H WERNER Administration PFSH Anesthesia Medical History History of mononucleosis Month of December 2020 Hypertension No pertinent past medical history Denies: diabetes, seizures, DVT/PE, asthma. PCP: Dr. Saldivar Surgical History S/P tubal ligation Performed at time of her third S/P dilation and curettage Done for miscarriage S/P wisdom tooth extraction S/P section x 3 Family History Father Heart disease Stroke Hypertension Mother Thyroid disease Polycythemia vera at age 90 Family/Other Breast cancer paternal aunt, diagnosed in her 70s. 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 [employer] Do you think of yourself as: Straight/Heterosexual Data Anesthesia 10/26/23 02:31 10/26/23 02:31 Short CBC 10/25/23 10/26/23 Range/Units 13:51 02:31 WBC 12.92 H 9.37 (3.29-11.43) 10^3/uL Hgb 14.10 11.70 (11.27-16.99) g/dL Hct 41.5 35.6 L (36-47) % MCV 85.0 86.8 (85-98) fl Plt Count 278 203 (157-399) 10^3/cmm Neut % (Auto) 92.4 69.7 % Neut # (Auto) 11.94 H 6.53 (1.8-7.7) 10^3/uL BMP 10/25/23 10/26/23 13:51 02:31 Sodium 142 140 Potassium 4.1 3.4 L Chloride 104 106 Carbon Dioxide 22 24 BUN 15 12 Creatinine 0.8 0.8 Glucose 214 H 85 Calcium 9.6 8.4 L Liver Function 10/25/23 10/26/23 Range/Units 13:51 02:31 Total Bilirubin 0.9 0.8 (0.15-1.2) mg/dL Direct Bilirubin 0.20 (0.00-0.30) mg/dL AST 20 12 (0-32) U/L ALT 42 H 29 (0-33) U/L Alkaline Phosphatase 107 H 82 (35-105) U/L Albumin 4.7 3.6 (3.5-5.2) g/dL Urine 10/25/23 Range/Units 14:48 Urine Color Yellow (Yellow) Urine Appearance Clear (CLEAR) Urine pH 7 (5-7) Ur Specific [place] 1.010 (1.005-1.030) Urine Protein Neg (Negative) Urine Glucose (UA) 2+ H (Normal) Urine Ketones 2+ H (Negative) Urine Nitrate Negative (Negative) Urine Bilirubin Neg (Negative) Ur Leukocyte Esterase Negative (Negative) Urine RBC 0-4 H (0-2) /hpf Urine WBC None (0-5) /hpf Cardiac Studies: 2 Echocardiogram 12/03/22 Cardiac Event Monitor 12/17/22
[2023-10-26] MEDS: sodium chloride 0.9% 1,000 ML 30 ML IV (08:00)
[2023-10-26] MEDS: BUPivacaine 0.25% INJ 10 mL INJECTION (08:34)
[2023-10-26] MEDS: lidocaine-epi 1% 20 mL INJ INJECTION (08:34)
--- NOTE | 2023-10-26 09:30 | PM.OP ---
Operative Report Date of procedure: October 26, 2023 Pre-op diagnosis: Biliary colic Post-op diagnosis: Acute cholecystitis Post-op findings: Inflamed gallbladder with significant edema on the wall, distention, probable cystic duct stones. Procedure done: Laparoscopic cholecystectomy Specimens removed/disposition: Gallbladder Surgeon: Weston Dai MD Air Traffic Supervisor: PHOEBE OR Staff Estimated blood loss: 10 Complications: None apparent Brief History: 63-year-old female with history of chronic cholecystitis and a recent HIDA scan showing obstruction of the cystic duct. Presented to the emergency department with an episode of biliary colic, due to severity of symptoms we decided to proceed with laparoscopic cholecystectomy after discussion of risk and benefits of documented in my preop note. Procedure: Patient was brought into the OR, she was placed in a supine position, general anesthesia was given. The abdomen was prepped and draped in the usual sterile fashion. The abdomen was accessed via infraumbilical incision and a 12 mm Mack trocar was placed using an open technique, the trocar was fixed to the fascia with #0 Vicryl. Initial pneumoperitoneum was done and laparoscopy showed no evidence of visceral injury during entry. Additional 5 mm trocars were placed in the epigastric right upper quadrant and right flank positions under direct visualization. The gallbladder was retracted cephalad from the fundus and it was noted to be very distended and edematous. To facilitate grasping of the gallbladder I therefore decided to decompress the gallbladder with a decompressive needle which was inserted into the gallbladder under direct visualization, about 40 cc of bile was removed. After this the gallbladder was able to be grasped and retracted in a cephalad direction, the infundibulum of the gallbladder was retracted in inferolateral direction I then proceeded to open the peritoneum anterior to hepatocystic triangle using electrocautery, this opening in the peritoneum was carried in the medial and lateral direction to the edges of the liver and then it was carried cephalad on the sides of the gallbladder to allow better visualization. There was significant edema and inflammation at the level of the hepatocystic triangle. Careful dissection was done using [place], blunt dissector and electrocautery. The cystic duct and artery were encircled and the lower third of the gallbladder was elevated from the liver bed thus creating a critical view of safety. The cystic artery was doubly clipped proximally and single clipped distally and transected, the cystic duct was noted to be thick with apparent stones versus was large inside therefore I proceeded to milk all the stones towards the gallbladder side of the specimen and then the cystic duct was double clipped proximally and single clipped distally and transected. Before removing the gallbladder from the liver bed I noticed a small amount of bleeding from a small arterial branch at the level of the liver Path, this was clipped to obtain control, no significant blood loss was noted after this. The gallbladder was removed from the liver bed using electrocautery. The gallbladder bed was then irrigated and suction to ensure adequate hemostasis and proper positioning of the clips. No evidence of bile leak or bleeding was noted. The specimen was retrieved through the umbilical trocar site using an Endo Catch bag. The umbilical trocar site was then closed under direct visualization using 2 [id number] #0 Vicryl sutures with a Jeevan-Ryley suture passer. The epigastric trocar was removed under direct visualization, the right flank trocar was removed under direct visualization and the right upper quadrant trocar was used to evacuate the pneumoperitoneum and subsequently removed. The wounds were closed in layers using #4-0 Monocryl for the skin and Dermabond was applied. At the end of the procedure all counts were correct, the patient tolerated well the procedure, was extubated and transferred to the PACU in stable condition.
--- NOTE | 2023-10-26 09:46 | ANE.PACU2 ---
Inpatient post-anesthesia follow up: Vital signs: Temperature 97 F Pulse Rate 76 Respiratory Rate 16 Blood Pressure 120/56 Pulse Oximetry 94 Oxygen Delivery Me thod Room Air Oxygen Flow Rate Fraction of Inspir ed Oxygen Hydration adequate: Yes Nausea and vomiting: No Pain level: 2 Mental status: Baseline (Post anesthesia; drowsy but arousable )
--- NOTE | 2023-10-26 09:48 | P.DS_ITS ---
Discharge Providers Date of Admission: 10/25/23 16:13 Date of Discharge: October 26, 2023 Attending Provider at Admission: Weston Dai MD Attending Provider at Discharge: Weston Dai MD Primary Care Provider: Ignacio Saldivar MD Diagnoses at Discharge Discharge Diagnosis (1) Cholecystitis, chronic: Status: Acute (2) Cholelithiases: Status: Acute (3) Biliary colic: Status: Inactive Reason for Visit Reason for Visit: abd pain Hospital Course Hospital Course 63-year-old female admitted with severe biliary colic. Patient underwent laparoscopic cholecystectomy showing evidence of acute cholecystitis. Patient will be discharged home, she will receive antibiotic therapy and pain control and I will follow-up in 2 weeks in the clinic. Physical Exam GI: OTHER: Appropriately tender to palpation, surgical incisions covered with Dermabond, no other significant findings. Discharge Data Studies Completed and Pending Completed Studies During Hospitalization Category Date Time Status CT abdomen pelvis w con* [id number] Stat Cat Scan 10/25/23 14:34 Completed US gall bladder [id number] Stat Ultrasound 10/25/23 13:43 Completed Pending at discharge Category Date Time Status Pathology: Surgical [PTH] Routine Pth 10/26/23 09:45 Ordered Radiology Impressions Gallbladder Ultrasound 10/25/23 13:43 IMPRESSION: Cholelithiasis without evidence of acute cholecystitis. Abdomen/Pelvis CT 10/25/23 14:34 IMPRESSION: No acute abdominal findings. Cholelithiasis without evidence of acute cholecystitis. Laboratory Results WBC 9.37 10^3/uL (3.29-11.43) 10/26/23 02:31 RBC 4.10 10^6/uL (3.85-5.65) 10/26/23 02:31 Hgb 11.70 g/dL (11.27-16.99) 10/26/23 02:31 Hct 35.6 % (36-47) L 10/26/23 02:31 MCV 86.8 fl (85-98) 10/26/23 02:31 MCH 28.5 pg (27-33) 10/26/23 02:31 MCHC 32.9 g/dL (30-55) 10/26/23 02:31 RDW 13.6 % (12.1-15.1) 10/26/23 02:31 Plt Count 203 10^3/cmm (157-399) 10/26/23 02:31 MPV 9.8 fL (7.4-10.4) 10/26/23 02:31 Neut % (Auto) 69.7 % 10/26/23 02:31 Lymph % (Auto) 19.1 % 10/26/23 02:31 [place] % (Auto) 10.5 % 10/26/23 02:31 Eos % (Auto) 0.2 % 10/26/23 02:31 Baso % (Auto) 0.3 % 10/26/23 02:31 Neut # (Auto) 6.53 10^3/uL (1.8-7.7) 10/26/23 02:31 Lymph # (Auto) 1.8 10^3/uL (0.8-4.8) 10/26/23 02:31 [place] # (Auto) 1.0 10^3/uL (0.2-0.9) H 10/26/23 02:31 Eos # (Auto) 0.0 10^3/uL (0.0-0.8) 10/26/23 02:31 Baso # (Auto) 0.0 10^3/uL (0.0-0.1) 10/26/23 02:31 Nucleated RBC % (auto) 0 % 10/26/23 02: Nucleated RBCs # 0.0 /100WBC 10/26/23 02:31 Sodium 140 mmol/L (136-145) 10/26/23 02:31 Potassium 3.4 mmol/L (3.5-5.1) L 10/26/23 02:31 Chloride 106 mmol/L (98-107) 10/26/23 02:31 Carbon Dioxide 24 mmol/L (22-29) 10/26/23 02:31 Anion Gap 13.4 (5-19) 10/26/23 02:31 BUN 12 mg/dL (8-23) 10/26/23 02:31 Creatinine 0.8 mg/dL (0.5-0.9) 10/26/23 02:31 GFR Calculation 72.0 mL/min (90-130) L 10/26/23 02:31 Glucose 85 mg/dL (65-115) 10/26/23 02:31 Calculated Osmolality 289 mOsm/kg (285-295) 10/26/23 02:31 Calcium 8.4 mg/dL (8.5-10.5) L 10/26/23 02:31 Total Bilirubin 0.8 mg/dL (0.15-1.2) 10/26/23 02:31 Direct Bilirubin 0.20 mg/dL (0.00-0.30) 10/26/23 02:31 AST 12 U/L (0-32) 10/26/23 02:31 ALT 29 U/L (0-33) 10/26/23 02:31 Alkaline Phosphatase 82 U/L (35-105) 10/26/23 02:31 Total Protein 5.7 g/dL (6.6-8.7) L D 10/26/23 02:31 Albumin 3.6 g/dL (3.5-5.2) 10/26/23 02:31 Globulin 2.1 g/dL (1.3-4.6) 10/26/23 02:31 Lipase 19 U/L (13-60) 10/25/23 13:51 Urine Color Yellow (Yellow) 10/25/23 14:48 Urine Appearance Clear (CLEAR) 10/25/23 14:48 Urine pH 7 (5-7) 10/25/23 14:48 Ur Specific [place] 1.010 (1.005-1.030) 10/25/23 14:48 Urine Protein Neg (Negative) 10/25/23 14:48 Urine Glucose (UA) 2+ (Normal) H 10/25/23 14:48 Urine Ketones 2+ (Negative) H 10/25/23 14:48 Urine Blood 2+ (Negative) H 10/25/23 14:48 Urine Nitrate Negative (Negative) 10/25/23 14:48 Urine Bilirubin Neg (Negative) 10/25/23 14:48 Urine Urobilinogen Norm mg/dL (Negative) 10/25/23 14:48 Ur Leukocyte Esterase Negative (Negative) 10/25/23 14:48 Urine RBC 0-4 /hpf (0-2) H 10/25/23 14:48 Urine WBC None /hpf (0-5) 10/25/23 14:48 Ur Squamous Epith Cells Rare /hpf (0-5) 10/25/23 14:48 Amorphous Sediment Not Reportable 10/25/23 14:48 Urine Bacteria Trace /hpf (NONE) 10/25/23 14:48 Vitals Last Vital Signs Temp 97 F L 10/26/23 09:43 Pulse 76 10/26/23 09:43 Resp 16 10/26/23 09:43 BP 120/56 10/26/23 09:43 Pulse Ox 94 10/26/23 09:43 O2 Del Method Room Air 10/26/23 09:43 Discharge Plan Discharge Patient Disposition: Home Condition: Stable Prescriptions: New meloxicam 7.5 mg tablet 7.5 mg PO DAILY Qty: 7 0RF oxycodone 5 mg tablet 5 mg PO Q8H PRN (Reason: pain, severe) Qty: 14 0RF ciprofloxacin HCl 250 mg tablet 250 mg PO BID Qty: 8 0RF metronidazole 500 mg tablet 500 mg PO Q8H Qty: 12 0RF ondansetron 4 mg tablet,disintegrating 4 mg PO Q6H PRN (Reason: nausea and vomiting) Qty: 20 0RF Continued aspirin 81 mg tablet,delayed release (DR/EC) 81 mg PO DAILY atorvastatin 40 mg tablet 40 mg PO BEDTIME Qty: 90 3RF citalopram 20 mg tablet 20 mg PO DAILY Qty: 90 2RF losartan 50 mg tablet 50 mg PO DAILY Changed pantoprazole 40 mg tablet,delayed release (DR/EC) 40 mg PO QPM Qty: 30 0RF Discontinued hydrocodone-acetaminophen 5-325 mg tablet 1 tab PO Q6H PRN (Reason: pain) Qty: 20 0RF promethazine 25 mg tablet 25 mg PO Q6H PRN (Reason: nausea and vomiting) Qty: 20 0RF sucralfate 100 mg/mL suspension 10 ml PO BID Discharge Orders: Discharge Order (Routine); Ordered 10/26/23 Ordered By: Weston Dai Referrals: Weston Dai MD [Physician] - (2 weeks) Ignacio Saldivar MD [Primary Care Provider] - Discharge Diet: Advance as tolerated and Low Fat Discharge Activity: Limit activity as instructed Patient Instructions: Opioid Safety, Post Anesthesia Care Activity Restrictions/Additional Instructions: Walk is much as possible to improve your recovery and prevent blood clots in your legs. No heavy lifting, no more than 10 pounds over the next 4 to 6 weeks. Please remain on a low-fat diet, if you eat fatty food you may have diarrhea. Return to the hospital you have severe abdominal pain does not control with your pain medication, yellowing of the skin or eyes or other significant symptoms. You can shower starting tomorrow, let soap and water run over your wounds and then pat dry Discharge Attestations Time Spent in Discharge Care*: less than 30 min Quality Metrics Clinical Quality Measures [ No reported AMI, CVA or VTE this stay] Coding Level of Care Code Acute Code for Chg Fwd Diagnoses Cholecystitis, chronic K81.1 Cholelithiases K80.20 Biliary colic K80.50
--- NOTE | 2023-10-27 15:03 | PC.NURSE ---
Discharge delay on 10/26/23 was due to waiting to see how patient tolerated diet after procedure. No issues and patient was discharged with no needs at that time.
== END 2023-10-26 13:48 | disposition home or self-care (01) ==
LOC: ER 16:05 → MEDSURG 16:43
PROVIDERS: Admitting Provider Surgery; Emergency Provider Physician Assistant; PCP Family Medicine; Visit Provider Surgery
PROC: 0FT44ZZ Resection of Gallbladder, Percutaneous Endoscopic Approach (ICD-10-PCS; CPT 47562; principal; 2023-10-26 08:00)
DX: K80.10 Calculus of gallbladder with chronic cholecystitis without obstruction (principal); Z79.82 Long term (current) use of aspirin; I10 Essential (primary) hypertension
CPT/HCPCS: 47562; 36415; 74177; 76705; 80048; 80053; 80076; 81001; 83690; 85025; 88304; 96365; 96367; 96375; 99285; C9113; G0378; J0744; J1170; J1885; J2270; J2405; J2704; J2710; J2765; J3010; J3490; J7030; J7120; Q9967

== ENCOUNTER → 2023-11-11 10:28 | Outpatient (BNVA) | payer MEDICARE, OTHER, SELFPAY | PROVIDERS: PCP Family Medicine; Visit Provider Surgery | DX: K80.00 Calculus of gallbladder with acute cholecystitis without obstruction (principal); Z48.815 Encounter for surgical aftercare following surgery on the digestive system; Z79.899 Other long term (current) drug therapy | CPT/HCPCS: 99024 ==

== ENCOUNTER 2024-01-27 13:17 | Outpatient (RCR) | payer MEDICARE, OTHER, SELFPAY | END 2024-02-13 23:59 | disposition home or self-care (01) | LOC: APT 13:17 | PROVIDERS: PCP Family Medicine; Visit Provider Family Medicine | DX: M25.512 Pain in left shoulder (principal) | CPT/HCPCS: 97110; 97112; 97140; 97530 ==

== ENCOUNTER 2024-02-14 06:00 | Outpatient (RCR) | payer MEDICARE, OTHER, SELFPAY | END 2024-03-14 23:59 | disposition home or self-care (01) | LOC: APT 06:00 | PROVIDERS: PCP Family Medicine; Visit Provider Family Medicine | DX: M25.512 Pain in left shoulder (principal) | CPT/HCPCS: 97110; 97112; 97140; 97530 ==

== ENCOUNTER 2024-03-15 06:00 | Outpatient (RCR) | payer MEDICARE, OTHER, SELFPAY | END 2024-04-14 23:59 | disposition home or self-care (01) | LOC: APT 06:00 | PROVIDERS: PCP Family Medicine; Visit Provider Family Medicine | DX: M25.512 Pain in left shoulder (principal) | CPT/HCPCS: 97110; 97140; 97530 ==

== ENCOUNTER → 2024-04-22 14:00 | Outpatient (BNVA) | payer MEDICARE, OTHER, SELFPAY | PROVIDERS: PCP Family Medicine; Visit Provider Internal Medicine | DX: I10 Essential (primary) hypertension (principal); R00.2 Palpitations; G45.9 Transient cerebral ischemic attack, unspecified | CPT/HCPCS: 99214 ==

== ENCOUNTER 2024-04-30 11:00 | Outpatient (RCR) | payer MEDICARE, OTHER, SELFPAY | END 2024-05-15 23:59 | disposition home or self-care (01) | LOC: APT 11:00 | PROVIDERS: PCP Family Medicine; Visit Provider Family Medicine | DX: M25.512 Pain in left shoulder (principal) | CPT/HCPCS: 97110; 97140; 97530 ==

== ENCOUNTER 2024-05-03 14:22 | Outpatient (CLI) | payer MEDICARE, OTHER, SELFPAY ==
--- NOTE | 2024-05-03 14:30 | MM_ITS ---
WS: [id number] BILATERAL 3D TOMOSYNTHESIS DIGITAL SCREENING MAMMOGRAPHY WITH CAD CLINICAL INFORMATION: Z12.39 - Encounter for other screening for malignant neop... HISTORY: Screening mammogram. No current complaints. COMPARISON: 2022 TECHNIQUE: Bilateral CC and MLO views. FINDINGS: The breasts are composed of heterogeneous fibroglandular density tissue, which can limit the detectio n of small underlying mass lesions. No suspicious mass, asymmetry, calcifications, or architectural d istortion. No evidence of malignancy. Stable biopsy clip upper outer RIGHT breast. MM/[place] [id number] IMPRESSION: BI-RADS: 2-Benign FOLLOW UP: 1 Year Follow-up Recommend return to annual screening mammography.
== END 2024-05-03 14:23 | disposition home or self-care (01) ==
LOC: RAD 14:24
PROVIDERS: PCP Family Medicine; Visit Provider Nurse Practitioner Women's Health
DX: Z12.31 Encounter for screening mammogram for malignant neoplasm of breast (principal); R92.323 Mammographic fibroglandular density, bilateral breasts
CPT/HCPCS: 77063; 77067; 87624

== ENCOUNTER 2024-05-16 06:00 | Outpatient (RCR) | payer MEDICARE, OTHER, SELFPAY | END 2024-06-14 23:59 | disposition home or self-care (01) | LOC: APT 06:00 | PROVIDERS: PCP Family Medicine; Visit Provider Family Medicine | DX: M25.512 Pain in left shoulder (principal) | CPT/HCPCS: 97110; 97530 ==

== ENCOUNTER → 2024-12-08 10:57 | Outpatient (BNVA) | payer MEDICARE, OTHER, SELFPAY | PROVIDERS: PCP Family Medicine; Visit Provider Family Medicine | DX: Z13.220 Encounter for screening for lipoid disorders (principal); E78.5 Hyperlipidemia, unspecified; Z51.81 Encounter for therapeutic drug level monitoring; R73.09 Other abnormal glucose | CPT/HCPCS: 80053; 80061; 83036; 85025 ==

== ENCOUNTER → 2025-01-20 14:41 | Outpatient (BNVA) | payer MEDICARE, OTHER, SELFPAY | PROVIDERS: PCP Family Medicine; Visit Provider Internal Medicine | DX: R00.2 Palpitations (principal); I10 Essential (primary) hypertension; Z79.82 Long term (current) use of aspirin; Z86.73 Personal history of transient ischemic attack (TIA), and cerebral infarction without residual deficits | CPT/HCPCS: 99213 ==

== ENCOUNTER → 2025-02-01 13:15 | Outpatient (BNVA) | payer MEDICARE, OTHER, SELFPAY | PROVIDERS: PCP Family Medicine; Visit Provider Nurse Practitioner Family | DX: D22.4 Melanocytic nevi of scalp and neck (principal); L57.8 Other skin changes due to chronic exposure to nonionizing radiation; D22.5 Melanocytic nevi of trunk; L81.4 Other melanin hyperpigmentation; L84 Corns and callosities; B35.1 Tinea unguium; L60.8 Other nail disorders; L82.0 Inflamed seborrheic keratosis; Z78.9 Other specified health status | CPT/HCPCS: 17110; 99213 ==

== ENCOUNTER 2025-05-13 12:26 | Outpatient (CLI) | payer MEDICARE, OTHER, SELFPAY ==
--- NOTE | 2025-05-13 12:40 | MM_ITS ---
WS: [id number] BILATERAL 3D TOMOSYNTHESIS DIGITAL SCREENING MAMMOGRAPHY WITH CAD CLINICAL INFORMATION: Z12.31 - Encounter for screening mammogram for malignant ... HISTORY: Screening mammogram. No current complaints. COMPARISON: 2023 TECHNIQUE: Bilateral CC and MLO views. FINDINGS: The breasts are composed of heterogeneous fibroglandular density tissue, which can limit the detection of small underlying mass lesions. No suspicious mass, asymmetry, calcifications, or architectural distortion. No evidence of malignancy. Biopsy clip RIGHT breast. A few incidental punctate calcifications. MM/MM [facility] tomosynthesis [id number] IMPRESSION: DENSITY: The breasts are heterogeneously dense, which may obscure small masses. BI-RADS: 2 - Benign FOLLOW UP: 1 Year Follow-up Recommend return to annual screening mammography.
--- NOTE | 2025-05-13 13:00 | XR_ITS ---
WS: [id number] SCREENING DEXA SCAN Contrib CLINICAL INFORMATION: Z78.0 - Asymptomatic menopausal state COMPARISON: 2014 FINDINGS: The L1-L4 bone mineral density measures 1.058 g/cm2. This corresponds to a T score score of -1.0 and Z score of 0.2. Left femoral neck bone mineral density measures 0.935 g/cm2. This corresponds to a T score of -0.6 and Z score of 0.4. Right femoral neck bone mineral density measures 0.968 g/cm2. This corresponds to a T score -0.3of and Z score of 0.7. Mean femoral neck bone mineral density measures 0.952 g/cm2. This corresponds to a T score of -0.4 and Z score of 0.5. XR/XR DEXA axial skeleton* [id number] IMPRESSION: Osteopenia lumbar spine. Normal bone mineralization femoral necks. Patient's FRAX calculated 10 year probability for major osteoporotic fracture i s 8.5% and osteoporotic hip fracture is 0.7%. Bone density lumbar spine decreased -2.9% Bone density femoral necks decreased -2.4%
== END 2025-05-13 12:27 | disposition home or self-care (01) ==
LOC: RAD 12:27
PROVIDERS: PCP Family Medicine; Visit Provider Nurse Practitioner Women's Health
DX: Z12.31 Encounter for screening mammogram for malignant neoplasm of breast (principal); Z78.0 Asymptomatic menopausal state; Z13.820 Encounter for screening for osteoporosis; R92.333 Mammographic heterogeneous density, bilateral breasts; M85.88 Other specified disorders of bone density and structure, other site
CPT/HCPCS: 77063; 77067; 77080

== ENCOUNTER 2025-05-18 16:45 | Outpatient (CLI) | payer MEDICARE, OTHER, SELFPAY | END 2025-05-18 16:46 | disposition home or self-care (01) | LOC: LAB 05-21 11:01 | PROVIDERS: PCP Family Medicine; Visit Provider Nurse Practitioner Women's Health | DX: M85.80 Other specified disorders of bone density and structure, unspecified site (principal); R00.2 Palpitations | CPT/HCPCS: 82306; 84443 ==

== ENCOUNTER → 2025-06-09 14:47 | Outpatient (BNVA) | payer MEDICARE, OTHER, SELFPAY | PROVIDERS: PCP Family Medicine; Visit Provider Clinical Nurse Specialist Adult Health | DX: M25.571 Pain in right ankle and joints of right foot (principal); M25.471 Effusion, right ankle | CPT/HCPCS: 73610 ==

== ENCOUNTER 2025-06-16 14:21 | Outpatient (CLI) | payer MEDICARE, OTHER, SELFPAY | END 2025-06-16 14:22 | disposition home or self-care (01) | LOC: SPT 14:23 | PROVIDERS: PCP Family Medicine; Visit Provider Podiatrist Foot & Ankle Surgery | DX: Z46.89 Encounter for fitting and adjustment of other specified devices (principal); S82.831D Other fracture of upper and lower end of right fibula, subsequent encounter for closed fracture with routine healing; X58.XXXD Exposure to other specified factors, subsequent encounter | CPT/HCPCS: 99203; L1902 ==

== ENCOUNTER → 2025-07-18 12:38 | Outpatient (BNVA) | payer MEDICARE, OTHER, SELFPAY | PROVIDERS: PCP Family Medicine; Visit Provider Podiatrist Foot & Ankle Surgery | DX: L60.3 Nail dystrophy (principal); S82.831D Other fracture of upper and lower end of right fibula, subsequent encounter for closed fracture with routine healing; X58.XXXD Exposure to other specified factors, subsequent encounter | CPT/HCPCS: 99214 ==

== ENCOUNTER → 2025-08-26 09:12 | Outpatient (BNVA) | payer MEDICARE, OTHER, SELFPAY | PROVIDERS: PCP Family Medicine; Visit Provider Podiatrist Foot & Ankle Surgery | DX: L60.3 Nail dystrophy (principal) | CPT/HCPCS: 80053 ==

== ENCOUNTER → 2025-08-29 13:28 | Outpatient (BNVA) | payer MEDICARE, OTHER, SELFPAY | PROVIDERS: PCP Family Medicine; Visit Provider Podiatrist Foot & Ankle Surgery | DX: L60.8 Other nail disorders (principal); S99.911A Unspecified injury of right ankle, initial encounter; L60.3 Nail dystrophy; X58.XXXA Exposure to other specified factors, initial encounter | CPT/HCPCS: 99213 ==